=== PATIENT | female | born 1970 | race African-American/Black ===

== ENCOUNTER 2016-08-14 15:28 | Inpatient (IN) | payer OTHER ==
[2016-08-14] VITALS (8 sets, daily range): BP systolic 93–129; BP diastolic 60–98
[~2016-08-14] VITALS: Ht 162.6 cm; Wt 73.6 kg
--- NOTE | 2016-08-14 15:37 | Emergency Room Report ---
History of Present Illness General Source: Medical Record, EMS Present Illness HPI This patient presents from a [facility]. This patient has a history of respiratory failure and CVA. She is ventilator dependent. She underwent a chest x-ray this morning at the [facility] and was found to have a pneumothorax on the right side. The [facility] physician sent her here for evaluation. There has been no report of shortness of breath or difficulty feeding. There has been no change in mental status. There has been no desaturations. There are no other complaints. Allergies: Coded Allergies: No Known Allergies (Unverified , 08/14/16) Patient History Past Medical History: see triage record, DM, CAD, CVA/TIA, seizures, other - Hypothyroid Past Surgical History: pacemaker, other - TRACH/PEG Social History: Denies: alcohol use, drug use, smoking Reviewed Nursing Documentation: PMH: Agreed, PSxH: Agreed Review of Systems All Other Systems: limited Physical Exam Sp02 EP Interpretation: reviewed, normal General Appearance: no apparent distress, alert, non-toxic Head: normocephalic, atraumatic ENT: no angioedema Neck: full range of motion, supple/symm/no masses, other - Trach in place Respiratory: chest non-tender, lungs clear, normal breath sounds, no respiratory distress Cardiovascular #1: regular rate, rhythm, no edema Gastrointestinal: normal bowel sounds, non tender, soft, non-distended, no guarding, no rebound, other - G-tube in place Rectal: deferred Musculoskeletal: other - contracted (At baseline). Neurologic: alert, responsive, other - At baseline. Contracted, non-verbal. Skin: warm/dry, well hydrated Procedures Chest Tube Chest Tube : Consent: Emergent Chest Tube Location: Mid-clavicular line 2nd intercostal space. Chest Tube Procedure: betadine prep, sterile drapes applied, sterile dressing applied Anesthesia: 1% Lidocaine Volume Anesthetic (ccs): [address] [place]: Yes Number of Attempts: One Tube Sutured to Skin: No Patient Tolerated: Well Complications: None Progress A thoracic vent was placed at the midclavicular line second intercostal space in a standard fashion without complication or incident. Medical Decision Making Diagnostic Impression: Primary Impression: Pneumothorax on right ER Course This patient is on a ventilator and presents with a pneumothorax that comprises about 40% of her right chest. A thoracic vent chest tube was placed with reinflation of the right lung without competition or incident. See my procedure note. This patient is admitted to the ICU for further evaluation, monitoring and treatment. This patient is critically ill. This patient required complex medical decision- making, aggressive intervention, extensive laboratory workup and monitoring. Critical care time: 40 minutes. Labs Test 08/14/16 15:40 White Blood Count 8.4 K/UL (4.8-10.8) Red Blood Count 3.69 M/UL (4.20-5.40) Hemoglobin 10.5 G/DL (12.0-16.0) Hematocrit 32.1 % (37.0-47.0) Mean Corpuscular Volume 87 FL (80-99) Mean Corpuscular Hemoglobin 28.3 PG (27.0-31.0) Mean Corpuscular Hemoglobin Concent 32.6 G/DL (32.0-36.0) Red Cell Distribution Width 12.6 % (11.6-14.8) Platelet Count 329 K/UL (150-450) Mean Platelet Volume 7.3 FL (6.5-10.1) Neutrophils (%) (Auto) 54.4 % (45.0-75.0) Lymphocytes (%) (Auto) 37.1 % (20.0-45.0) Monocytes (%) (Auto) 4.0 % (1.0-10.0) Eosinophils (%) (Auto) 3.7 % (0.0-3.0) Basophils (%) (Auto) 0.9 % (0.0-2.0) Sodium Level 140 mEQ/L (135-145) Potassium Level 4.1 mEQ/L (3.4-4.9) Chloride Level 98 mEQ/L (98-107) Carbon Dioxide Level 24 mEQ/L (20-30) Anion Gap 18 (5-15) Blood Urea Nitrogen 14 mg/dL (7-23) Creatinine 0.5 mg/dL (0.5-0.9) Estimat Glomerular Filtration Rate > 60 mL/min (>60) Glucose Level 92 mg/dL (74-106) Calcium Level 10.1 mg/dL (8.6-10.2) Total Bilirubin < 0.2 mg/dL (0.0-1.2) Aspartate Amino Transf (AST/SGOT) 13 U/L (5-40) Alanine Aminotransferase (ALT/SGPT) 9 U/L (3-33) Alkaline Phosphatase 139 U/L (35-104) Total Protein 8.0 g/dL (6.6-8.7) Albumin 3.8 g/dL (3.5-5.2) Globulin 4.2 g/dL Albumin/Globulin Ratio 0.9 (1.0-2.7) EKG Diagnostic Results Rate: normal Rhythm: NSR ST Segments: no acute changes Other Impression NSST findings. No comparison available. Rhythm Strip Diag. Results EP Interpretation: yes Rate: 80's Rhythm: NSR, no PVC's, no ectopy Chest X-Ray Diagnostic Results Chest X-Ray Ordered: Yes # of Views/Limited/Complete: 1 View Interpretation: other Indication: Other Impression: Other - R. PTX Date Electronically Signed: Aug 14, 2016 Time Electronically Signed: 17:45 Interpreting ER Physician: Lalo Palmer Other X-Ray Diagnostic Results X-Ray ordered: CXR-S/p thoracic vent placement # of Views/Limited Vs Complete: 1 View Interpretation: other - Reinflated R. lung. Chest tube in place. Indication: Other Impression: Other - Reinflated R. lung s/p Thracic vent placement. Date Electronically Signed: Aug 14, 2016 Time Electronically Signed: 18:28 Interpreting ER Physician: Jorge Disposition: ADMITTED INPATIENT Condition: Critical SUSY PALMER D.O. Aug 14, 2016 15:37
[2016-08-14 16:15] LABS: BASOPHILS % (AUTO) 0.9 % (0.0-2.0); EOSINOPHILS % (AUTO) 3.7 % (0.0-3.0); LYMPHOCYTES % (AUTO) 37.1 % (20.0-45.0); MEAN CORPUSCULAR HEMOGLOBIN 28.3 PG (27.0-31.0); MEAN CORPUSCULAR HGB CONC 32.6 G/DL (32.0-36.0); MEAN CORPUSCULAR VOLUME 87 FL (80-99); MEAN PLATELET VOLUME 7.3 FL (6.5-10.1); NEUTROPHILS % (AUTO) 54.4 % (45.0-75.0); PLATELET COUNT 329 K/UL (150-450); RED BLOOD COUNT 3.69 M/UL (4.20-5.40); RED CELL DISTRIBUTION WIDTH 12.6 % (11.6-14.8); WHITE BLOOD COUNT 8.4 K/UL (4.8-10.8)
[2016-08-14 16:36] LABS: ALANINE AMINOTRANSFERASE 9 U/L (3-33); ALBUMIN/GLOBULIN RATIO 0.9 (1.0-2.7); ANION GAP 18 (5-15); ASPARTATE AMINO TRANSFERASE 13 U/L (5-40); CALCIUM 10.1 mg/dL (8.6-10.2); CARBON DIOXIDE 24 mEQ/L (20-30); CHLORIDE 98 mEQ/L (98-107); CREATININE 0.5 mg/dL (0.5-0.9); GLOMERULAR FILTRATION RATE > 60 mL/min (>60); HEMOLYSIS 41; POTASSIUM 4.1 mEQ/L (3.4-4.9); SODIUM 140 mEQ/L (135-145)
[2016-08-14] MEDS ORDERED: Lidocaine 1% MPF 10mg/ml 5ml ONE (16:57)
[2016-08-14] MEDS ORDERED: LACTULOSE20 GM/301 ORAL (17:47)
[2016-08-14] MEDS ORDERED: ACETAMINOP160 MG/51 ORAL (17:47)
[2016-08-14] MEDS ORDERED: LEVOTHYROXINE75 MCG ORAL (17:47)
[2016-08-14] MEDS ORDERED: ALBUTEROL2.5 MG/3 M INH (17:47)
[2016-08-14] MEDS ORDERED: MULTI-DELYN237 ML GT (17:47)
[2016-08-14] MEDS ORDERED: NORCO 5-325 TA1 EACH ORAL (17:47)
[2016-08-14] MEDS ORDERED: DULCOLAX10 MG RC (17:47)
[2016-08-14] MEDS ORDERED: FERROUS SU15 MG/1 M1 PO (17:47)
[2016-08-14] MEDS ORDERED: FERROUS SU300 MG/5 M ORAL (17:47)
[2016-08-14] MEDS ORDERED: MILK OF MA400 MG/51 ORAL (17:47)
[2016-08-14] MEDS ORDERED: ATENOLOL25 MG ORAL (17:47)
[2016-08-14] MEDS ORDERED: DOCUSATE SODIU100 MG ORAL (17:47)
[2016-08-14] MEDS ORDERED: ZINC SULFATE220 M1 ORAL (17:51)
[2016-08-15] VITALS (25 sets, daily range): BP systolic 87–114; BP diastolic 35–76
[2016-08-15] MEDS ORDERED: Acetaminophen Soln 160mg/5ml ORAL PRN (02:00)
[2016-08-15] MEDS ORDERED: Albuterol ud Inhalation HHN PRN (02:00)
[2016-08-15] MEDS: Docusate 100mg cap ORAL SCH (08:53)
[2016-08-15] MEDS: Ferrous Sulfate 300 MG/5 ML UDC ORAL SCH (08:53)
[2016-08-15] MEDS: Lactulose 20gm/30ml UDC ORAL SCH ×2 (08:53→18:00)
[2016-08-15] MEDS: Atenolol 25mg tab ORAL SCH (08:54)
--- NOTE | 2016-08-15 09:47 | History & Physical ---
History and Physical History & Physicial 46 year old unfortunate patient presented from a assisted facility after chest xr was positive for pneumothorax. This patient has a history of respiratory failure and CVA. She is ventilator dependent. She underwent a chest x-ray this morning at the assisted facility and was found to have a pneumothorax on the right side. There patient without increase in shortness of breath or difficulty with ventilator management. No reported oxygen desaturations. There are no other complaints or concerns. Allergies: No Known Allergies (Unverified , 08/14/16) Past Medical History: ETOH, PM, DM, CAD, CVA/TIA, seizures, Hypothyroid Past Surgical History: pacemaker, TRACH/PEG Social History: no alcohol use, drug use, smoking; bed bound; fully dependent Reviewed of systems: unable physical exam WDWN NAD clear breath sounds bilaterally without rhonchi or wheeze; ct in place [id number] without MRG NABS nontender no HSM GT no CCE nonfocal contracted Labs Test 08/14/16 15:40 White Blood Count 8.4 K/UL (4.8-10.8) Red Blood Count 3.69 M/UL (4.20-5.40) Hemoglobin 10.5 G/DL (12.0-16.0) Hematocrit 32.1 % (37.0-47.0) Mean Corpuscular Volume 87 FL (80-99) Mean Corpuscular Hemoglobin 28.3 PG (27.0-31.0) Mean Corpuscular Hemoglobin Concent 32.6 G/DL (32.0-36.0) Red Cell Distribution Width 12.6 % (11.6-14.8) Platelet Count 329 K/UL (150-450) Mean Platelet Volume 7.3 FL (6.5-10.1) Neutrophils (%) (Auto) 54.4 % (45.0-75.0) Lymphocytes (%) (Auto) 37.1 % (20.0-45.0) Monocytes (%) (Auto) 4.0 % (1.0-10.0) Eosinophils (%) (Auto) 3.7 % (0.0-3.0) Basophils (%) (Auto) 0.9 % (0.0-2.0) Sodium Level 140 mEQ/L (135-145) Potassium Level 4.1 mEQ/L (3.4-4.9) Chloride Level 98 mEQ/L (98-107) Carbon Dioxide Level 24 mEQ/L (20-30) Anion Gap 18 (5-15) Blood Urea Nitrogen 14 mg/dL (7-23) Creatinine 0.5 mg/dL (0.5-0.9) Estimat Glomerular Filtration Rate > 60 mL/min (>60) Glucose Level 92 mg/dL (74-106) Calcium Level 10.1 mg/dL (8.6-10.2) Total Bilirubin < 0.2 mg/dL (0.0-1.2) Aspartate Amino Transf (AST/SGOT) 13 U/L (5-40) Alanine Aminotransferase (ALT/SGPT) 9 U/L (3-33) Alkaline Phosphatase 139 U/L (35-104) Total Protein 8.0 g/dL (6.6-8.7) Albumin 3.8 g/dL (3.5-5.2) Globulin 4.2 g/dL Albumin/Globulin Ratio 0.9 (1.0-2.7) IMPRESSION PNEUMOTHORAX RESPIRATORY FAILURE TRACH GT PLAN care noted respiratory care Ventilatory care SNF meds supportive care suction no wean oxygen therapy thoracic to remove chest tube chest xr follow up prognosis guarded MONSERRAT GRULLON Aug 15, 2016 09:47
[2016-08-15] MEDS: Zinc Sulfate 220mg cap ORAL SCH (10:03)
--- NOTE | 2016-08-15 10:42 | Wound Care Consultation ---
Wound Assessment Wound Assessment #1: Wound Number: #1 Wound Present on Admission: Yes New Wound: No Status Change of Wound: No Wound Location Body Site Modif: mid Wound Location Body Site: sacral Wound Type: pressure ulcer Ledy Test: Does not Ledy Pressure Ulcer Stage: III Wound Thickness: Full Thickness Wound Length: 2.5 Wound Width: 3.0 Wound Depth: 0.3 Percent of Wound [place]/Red: 100 Wound Drainage Description: Serosanguineous Wound Drainage Amount: Moderate Wound Drainage Odor: None/Absent Tissue Surrounding Wound: Macerated Wound General Appearance: Reddened Wound Assessment #2: Wound Number: #2 Wound Present on Admission: Yes New Wound: No Status Change of Wound: No Wound Location Body Site Modif: right Wound Location Body Site: toe - 3rd toe Wound Type: scab - scattered Ledy Test: Does not Ledy Wound Thickness: Partial Thickness Percent of Wound [place]/Red: 50 - scab Percent of Wound Black/Brown: 50 - scab Wound Drainage Amount: None Wound Drainage Odor: None/Absent Tissue Surrounding Wound: Intact Wound General Appearance: Reddened - scabs, Blackened - scabs, Open to air, Clean/Dry Wound Comment #1 Mid Sacral pressure ulcer stage III. #2 Right 3rd toe scattered scabs. #3 Right chest scattered rash. Recommendation. -Local wound care PROTOCOL order. -Apply low air loss mattress SPR for wound and skin management. -Turn and reposition. -Keep clean and dry. -Optimize nutrition. -Offload affected site. -Avoid shear and friction. -Heel protectors. -Offload heels and feet. -Assess and notify MD for any changes of condition to skin noted. -FOLLOW UP WITH MD regarding rash to right chest area. SATCI MANDEL Aug 15, 2016 10:42
--- NOTE | 2016-08-15 10:55 | Diagnostic Imaging Report ---
Indication: Chest pain Technique: One view of the chest Comparison: None Findings: There is an approximately 60% right pneumothorax. Is a tracheostomy. There is a left chest pacemaker. No infiltrates or congestion. There is slight blunting of the left costophrenic sulcus. The right pleural space is clear other than the pneumothorax. There is a gastrostomy Impression: 60% right pneumothorax. This was apparently recognized by the emergency department physician, a subsequent chest radiograph document chest tube placement
--- NOTE | 2016-08-15 11:06 | Diagnostic Imaging Report ---
Indication: Followup pneumothorax Technique: One view of the chest Comparison: 08/14/2016 Findings: Again demonstrated is a upper lung chest vent catheter on the right, tip directed medially. No definite residual pneumothorax demonstrated. The right lung and pleural space are clear. There is slight obscuration of left hemidiaphragm and possible retrocardiac opacity, pleural and/or parenchymal disease in the left lung base not excludable. Pacemaker, tracheostomy again demonstrated Impression: Stable right lung, no evidence of residual or recurrent pneumothorax Obscured left hemidiaphragm, probably indicates some atelectasis at the left lung base, developing infiltrate or effusion not excludable
--- NOTE | 2016-08-15 12:54 | Diagnostic Imaging Report ---
Indication: TUBE PLCMT Technique: One view of the chest Comparison: 2 hours earlier Findings: Interim placement of right chest vent catheter, tip projected medially, resultant interim resolution of previously demonstrated pneumothorax. Lungs and pleural spaces are clear. Other findings are unchanged Impression: Interim resolution of previously demonstrated right pneumothorax, post chest vent catheter placement.
--- NOTE | 2016-08-15 15:01 | Cardiology Report ---
APPROVED REPORT EKG Measurement Heart [id number] Normal sinus rhythm Nonspecific T wave abnormality Abnormal ECG
--- NOTE | 2016-08-15 21:00 | Consultation ---
DATE OF CONSULTATION: 08/14/2016 CONSULTING PHYSICIAN: Yaniv Colin M.D. REFERRING PHYSICIAN: Jasiel Johnson M.D. HISTORY OF PRESENT ILLNESS: The patient is a 46-year-old, female who was transferred from a care home facility after detecting a right-sided pneumothorax. She has underwent a pigtail placement in the emergency room, and Thoracic Surgery was consulted for further evaluation. PAST MEDICAL HISTORY: Notable for, 1. Cerebrovascular accident. 2. Respiratory failure. 3. Diabetes. 4. Coronary artery disease. 5. Seizures. 6. Hypothyroidism. PAST SURGICAL HISTORY: Notable for, 1. Pacemaker insertion. 2. Tracheostomy. 3. G-tube placement. FAMILY HISTORY: Noncontributory. SOCIAL HISTORY: Noncontributory. ALLERGIES: The patient has no known drug allergies. MEDICATIONS: Reviewed. PHYSICAL EXAMINATION: VITAL SIGNS: She is noted to be afebrile. Her vitals are within normal limits. CARDIAC: Regular rate and rhythm. No gallops or murmur. RESPIRATORY: Clear to auscultation bilaterally. There is a right-sided pigtail chest tube with some air leak noted in the water chamber. ABDOMEN: Soft, nondistended, and nontender. EXTREMITIES: No evidence of cyanosis, clubbing, or edema. LABORATORY STUDY: Laboratory studies performed on 08/14/2016 showed WBC 8.4, hemoglobin of 10, hematocrit of 32, and a platelet count of 329,000. Her sodium is 140, potassium 4.1, chloride is 98, bicarbonate is 24, BUN is 14, creatinine is 0.5, and glucose is 92. Chest x-ray performed on 08/15/2016 demonstrated a right-sided pigtail placement with no evidence of pneumothorax. ASSESSMENT/PLAN: This is a 46-year-old, female, who presented with a right-sided pneumothorax. The patient was evaluated at bedside. After reviewing her clinical database, we will turn the ventilator PEEP to 0. Furthermore, we will continue the chest tube on suction x 48. The patient should have a noncontrast chest CT scan to further elucidate the underlying etiology of the pneumothorax. I want to thank you for referring this patient to my attention. If there are any questions in regards to this patient's clinical care, please do not hesitate to contact me. Bennett M.D. DR: REBECA JOB#: [id number] CC: SAAD
[2016-08-16] VITALS (24 sets, daily range): BP systolic 90–150; BP diastolic 48–100
--- NOTE | 2016-08-16 06:44 | General Progress Note ---
Assessment/Plan Assessment/Plan pneumothorax respiratory failure trach gt ALOC chronic encephalopathy PM low thyroid PLAN care noted respiratory care Ventilatory support SNF meds supportive care suction no wean oxygen therapy prognosis guarded await CT chest Subjective Allergies: Coded Allergies: No Known Allergies (Unverified , 08/14/16) Subjective thoracic appreciated Objective Last 24 Hour Vital Signs Date Time Temp Pulse Resp B/P Pulse Ox O2 Delivery O2 Flow Rate FiO2 08/16/16 06:00 89 22 107/78 100 Mechanical Ventilator 40 08/16/16 05:04 89 21 40 08/16/16 05:00 98.6 87 20 112/71 100 Mechanical Ventilator 40 08/16/16 04:00 86 08/16/16 04:00 90 18 104/68 100 Mechanical Ventilator 40 08/16/16 04:00 40 08/16/16 03:00 88 22 104/73 100 Mechanical Ventilator 40 08/16/16 02:44 84 19 40 08/16/16 02:00 88 22 102/67 100 Mechanical Ventilator 40 08/16/16 01:18 88 26 40 08/16/16 01:00 87 22 96/48 100 Mechanical Ventilator 40 08/16/16 00:00 40 08/16/16 00:00 88 08/16/16 00:00 91 22 93/51 100 Mechanical Ventilator 40 08/15/16 23:10 89 23 40 08/15/16 23:00 88 22 94/59 100 Mechanical Ventilator 40 08/15/16 22:00 88 22 100/65 100 Mechanical Ventilator 40 08/15/16 21:00 87 22 111/64 100 Mechanical Ventilator 40 08/15/16 20:56 85 17 40 08/15/16 20:00 40 08/15/16 20:00 82 08/15/16 20:00 78 22 98/60 100 Mechanical Ventilator 40 08/15/16 19:14 87 24 40 08/15/16 19:00 98.4 88 16 92/62 100 Mechanical Ventilator 40 08/15/16 18:00 85 19 103/58 100 Mechanical Ventilator 40 08/15/16 17:00 86 18 107/66 99 Mechanical Ventilator 40 08/15/16 16:42 88 17 40 08/15/16 16:00 88 08/15/16 16:00 98.4 90 26 114/76 100 Mechanical Ventilator 40 08/15/16 16:00 40 08/15/16 15:00 74 12 40 08/15/16 15:00 75 15 87/66 100 Mechanical Ventilator 40 08/15/16 14:00 75 14 89/57 100 Mechanical Ventilator 40 08/15/16 13:00 82 22 95/35 100 Mechanical Ventilator 40 08/15/16 12:40 90 23 40 08/15/16 12:00 40 08/15/16 12:00 90 08/15/16 12:00 98.7 90 27 106/48 100 Mechanical Ventilator 40 08/15/16 11:00 74 16 95/58 100 Mechanical Ventilator 40 08/15/16 10:45 80 12 40 08/15/16 10:00 40 08/15/16 10:00 86 20 112/67 100 Mechanical Ventilator 40 08/15/16 09:00 85 18 102/67 100 Mechanical Ventilator 40 08/15/16 08:55 84 17 40 08/15/16 08:54 80 105/64 08/15/16 08:00 98.5 82 25 103/66 99 Mechanical Ventilator 40 08/15/16 08:00 40 08/15/16 08:00 87 08/15/16 07:00 82 26 109/58 100 Mechanical Ventilator 40 08/15/16 06:50 87 22 40 Intake and Output 08/15/16 08/16/16 19:00 07:00 Intake Total 610 ml 380 ml Balance 610 ml 380 ml Intake Free Water 250 ml 50 ml Tube Feeding 360 ml 330 ml # Voids 1 # Bowel Movements 4 3 Height (Feet): 5 Height (Inches): 4.00 Weight (Pounds): 142 Objective WDWN NAD clear breath sounds bilaterally without rhonchi or wheeze; CT in place [id number] without MRG NABS nontender no HSM no CCE nonfocal significant contractures MONSERRAT GRULLON Aug 16, 2016 06:43
[2016-08-16] MEDS: Zinc Sulfate 220mg cap ORAL SCH (08:13)
[2016-08-16] MEDS: Lactulose 20gm/30ml UDC ORAL SCH ×2 (08:13→17:49)
[2016-08-16] MEDS: Docusate 100mg cap ORAL SCH (08:14)
[2016-08-16] MEDS: Ferrous Sulfate 300 MG/5 ML UDC ORAL SCH (08:14)
[2016-08-16] MEDS: Atenolol 25mg tab ORAL SCH (08:14)
[2016-08-16 10:20] LABS: BASOPHILS % (AUTO) 0.7 % (0.0-2.0); EOSINOPHILS % (AUTO) 2.4 % (0.0-3.0); LYMPHOCYTES % (AUTO) 26.7 % (20.0-45.0); MEAN CORPUSCULAR HEMOGLOBIN 28.2 PG (27.0-31.0); MEAN CORPUSCULAR HGB CONC 33.1 G/DL (32.0-36.0); MEAN CORPUSCULAR VOLUME 85 FL (80-99); MEAN PLATELET VOLUME 6.9 FL (6.5-10.1); MONOCYTES % (AUTO) 5.6 % (1.0-10.0); NEUTROPHILS % (AUTO) 64.7 % (45.0-75.0); PLATELET COUNT 356 K/UL (150-450); RED BLOOD COUNT 3.81 M/UL (4.20-5.40); RED CELL DISTRIBUTION WIDTH 12.7 % (11.6-14.8); WHITE BLOOD COUNT 9.7 K/UL (4.8-10.8)
[2016-08-16 10:36] LABS: ALANINE AMINOTRANSFERASE 8 U/L (3-33); ALBUMIN/GLOBULIN RATIO 0.8 (1.0-2.7); ANION GAP 19 (5-15); ASPARTATE AMINO TRANSFERASE 8 U/L (5-40); CALCIUM 9.8 mg/dL (8.6-10.2); CARBON DIOXIDE 21 mEQ/L (20-30); CHLORIDE 100 mEQ/L (98-107); CREATININE 0.5 mg/dL (0.5-0.9); GLOMERULAR FILTRATION RATE > 60 mL/min (>60); HEMOLYSIS 0; POTASSIUM 3.8 mEQ/L (3.4-4.9); SODIUM 140 mEQ/L (135-145); TOTAL PROTEIN 8.3 g/dL (6.6-8.7)
[2016-08-17] VITALS (16 sets, daily range): BP systolic 91–118; BP diastolic 49–90
[2016-08-17] MEDS: Norco 5mg/325mg tab ORAL PRN ×2 (06:00→07:03)
[2016-08-17] MEDS: Docusate 100mg cap ORAL SCH (09:09)
[2016-08-17] MEDS: Lactulose 20gm/30ml UDC ORAL SCH ×2 (09:09→17:10)
[2016-08-17] MEDS: Ferrous Sulfate 300 MG/5 ML UDC ORAL SCH (09:10)
[2016-08-17] MEDS: Zinc Sulfate 220mg cap ORAL SCH (09:10)
[2016-08-17] MEDS: Atenolol 25mg tab ORAL SCH (09:11)
--- NOTE | 2016-08-17 10:26 | Diagnostic Imaging Report ---
Indications: Chest pain Technique: Portable AP chest Findings: Comparison: 08/15/2016 Right-sided thoracic vent remains in place. No pneumothorax or pleural effusion identified. Left lung volume loss, left retrocardiac opacification, left costophrenic angle indistinctness all persist, not significantly changed. Cardiomediastinal silhouette stable. IMPRESSION: No evidence of recurrent right pneumothorax Stable left lung base atelectasis versus pneumonia, adjacent pleural effusion
--- NOTE | 2016-08-17 10:26 | Diagnostic Imaging Report ---
Indications: Shortness of breath, pneumothorax of unknown etiology Technique: Continuous helical CT imaging of the thorax and upper abdomen was performed with automatic exposure control on a Siemens sensation [address] scanner. Axial images were reconstructed at 5 mm slice thickness and interval. Coronal images were reconstructed at 5 mm slice thickness. No IV contrast was administered secondary to requesting physician's order, despite no contraindications listed. CTDI volume(s): 29 mGy Total DLP: 950 mGy-cm Findings: Comparison: Chest radiographs 08/14/16, 08/15/16 Percutaneous catheter of a thoracic vent enters the upper anterior right pleural space via the right anterior first intercostal space, extending into the medial aspect of the right pleural space. No pneumothorax or pleural effusion identified. The few small pleural-based linear densities are present in the right upper lobe. Subsegmental parenchymal consolidation and volume loss are present in the dependent portion of the right lung base. No other pulmonary parenchymal abnormalities are demonstrated. Right lung volume is significantly greater than left. Cardiomediastinal structures are shifted to the left. The lower lobe the left lung demonstrates subtotal parenchymal consolidation and volume loss with apparent bronchial obstruction centrally. Multiloculated hydropneumothorax is present in the upper anteromedial aspect of the left pleural space. Fluid component is high attenuation. This resides directly adjacent to the left subclavian artery and site of pacemaker leads entering the left subclavian vein. Heart is normal in size. Pacemaker leads reside within the right atrium and ventricle. No significant pericardial abnormality. A few small gas bubbles are present in the anterior mediastinal fat. No enlarged mediastinal or hilar lymph nodes detected. Pacemaker generator is present in the subcutaneous soft tissues of the upper anterior left chest wall. No obvious surrounding abnormality. Tracheostomy tube in place. Percutaneous gastrostomy tube in place. Remainder of imaged upper abdominal anatomy demonstrates no other obvious acute abnormality, though images are degraded by artifact generated by the patient's upper extremities at her sides. No focal skeletal abnormality identified. IMPRESSION: Right thoracic vent in place. No evidence of right pneumothorax, pleural effusion, other associated pleural or subjacent pulmonary parenchymal abnormalities suggestive of etiology of pneumothorax. Correlate with any recent history of central venous catheter placement attempt. Multifocal right lung subsegmental atelectasis Small loculated hemopneumothorax upper left hemithorax. Due to proximity to left subclavian artery and vein, this may represent complication of previous pacemaker placement with inadvertent puncture of left subclavian artery. Correlate historically. Minimal pneumomediastinum likely reflects the same process as above Subtotal atelectasis of left lower lobe. Central bronchial obstruction evident, etiology indeterminate. Bronchoscopy recommended. Pacemaker, tracheostomy, gastrostomy tube.
[2016-08-17 11:27] LABS: MEAN CORPUSCULAR HEMOGLOBIN 29.2 PG (27.0-31.0); MEAN CORPUSCULAR HGB CONC 33.1 G/DL (32.0-36.0); MEAN CORPUSCULAR VOLUME 88 FL (80-99); MEAN PLATELET VOLUME 7.2 FL (6.5-10.1); PLATELET COUNT 388 K/UL (150-450); RED BLOOD COUNT 4.17 M/UL (4.20-5.40); WHITE BLOOD COUNT 16.4 K/UL (4.8-10.8)
[2016-08-17 11:36] LABS: ANION GAP 18 (5-15); CARBON DIOXIDE 21 mEQ/L (20-30); CHLORIDE 100 mEQ/L (98-107); CREATININE 0.6 mg/dL (0.5-0.9); GLOMERULAR FILTRATION RATE > 60 mL/min (>60); HEMOLYSIS 0; POTASSIUM 3.7 mEQ/L (3.4-4.9); SODIUM 139 mEQ/L (135-145)
[2016-08-17 12:01] LABS: BAND NEUTROPHILS % (MANUAL) 0 % (0-8); BASOPHILS % (MANUAL) 0 % (0-2); EOSINOPHILS % (MANUAL) 1 % (0-3); LYMPHOCYTES % (MANUAL) 11 % (20-45); NEUTROPHILS % (MANUAL) 88 % (45-75); PLATELET ESTIMATE ADEQUATE; PLATELET MORPHOLOGY NORMAL; TOTAL CELLS COUNTED 100
[2016-08-17] MEDS ORDERED: Acetaminophen 650mg/20.3ml ORAL PRN (12:30)
--- NOTE | 2016-08-17 13:29 | General Progress Note ---
Assessment/Plan Assessment/Plan pneumothorax respiratory failure trach gt ALOC chronic encephalopathy PM low thyroid PLAN care noted respiratory care Ventilatory support as is SNF meds supportive care suction add IV cefepime check culture follow up cbc no wean oxygen therapy prognosis guarded await CT chest Subjective Allergies: Coded Allergies: No Known Allergies (Unverified , 08/14/16) Subjective thoracic appreciated wbc elevated cxr noted Objective Last 24 Hour Vital Signs Date Time Temp Pulse Resp B/P Pulse Ox O2 Delivery O2 Flow Rate FiO2 08/17/16 12:00 35 08/17/16 12:00 101.2 97 16 93/61 97 Mechanical Ventilator 35 08/17/16 11:22 100 23 35 08/17/16 11:00 104 29 104/78 97 Mechanical Ventilator 35 08/17/16 10:00 105 32 106/66 96 Mechanical Ventilator 35 08/17/16 09:11 115 107/68 08/17/16 09:03 107 26 35 08/17/16 09:00 115 29 107/68 97 Mechanical Ventilator 35 08/17/16 08:14 99.1 08/17/16 08:00 35 08/17/16 08:00 95 08/17/16 08:00 99.1 97 28 108/73 96 Mechanical Ventilator 35 08/17/16 07:04 94 26 35 08/17/16 07:00 95 19 95/61 97 Mechanical Ventilator 35 08/17/16 06:00 21 94/49 95 Mechanical Ventilator 40 08/17/16 05:07 97 26 40 08/17/16 05:00 100 30 109/90 100 Mechanical Ventilator 40 08/17/16 04:00 99.0 99 24 110/81 100 Mechanical Ventilator 40 08/17/16 04:00 99 08/17/16 04:00 40 08/17/16 03:05 102 20 40 08/17/16 03:00 100 22 98/67 94 Mechanical Ventilator 40 08/17/16 02:00 98 26 91/53 96 Mechanical Ventilator 40 08/17/16 01:12 100 25 40 08/17/16 01:00 96 25 99/64 100 Mechanical Ventilator 40 08/17/16 00:38 99.3 92 26 93/67 100 Mechanical Ventilator 40 08/17/16 00:04 40 08/17/16 00:00 97 08/17/16 00:00 99.4 97 26 93/67 100 Mechanical Ventilator 40 08/16/16 23:00 95 23 97/72 99 Mechanical Ventilator 40 08/16/16 22:47 94 19 40 08/16/16 22:00 96 26 103/62 99 Mechanical Ventilator 40 08/16/16 21:00 95 24 118/100 99 Mechanical Ventilator 40 08/16/16 20:56 99 08/16/16 20:43 96 20 40 08/16/16 20:00 40 08/16/16 20:00 99.2 95 15 95/76 97 Mechanical Ventilator 40 08/16/16 19:15 94 16 40 08/16/16 19:00 92 17 100/59 100 Mechanical Ventilator 40 08/16/16 18:00 95 16 90/52 99 Mechanical Ventilator 40 08/16/16 17:17 97 18 40 08/16/16 17:00 100 23 106/55 100 Mechanical Ventilator 40 08/16/16 16:00 98.4 102 20 117/79 97 Mechanical Ventilator 40 08/16/16 16:00 102 08/16/16 16:00 40 08/16/16 15:00 103 23 40 08/16/16 15:00 99 26 102/60 97 Mechanical Ventilator 40 08/16/16 14:00 96 20 99/63 99 Mechanical Ventilator 40 Intake and Output 08/16/16 08/17/16 19:00 07:00 Intake Total 485 ml 660 ml Output Total 10 ml Balance 485 ml 650 ml Intake Free Water 120 ml Tube Feeding 435 ml 540 ml Other 50 ml Output Stool Total 10 ml Chest Tube Drainage Total 0 ml # Voids 3 3 # Bowel Movements 1 Laboratory Tests 08/17/16 11:00: White Blood Count 16.4#H, Red Blood Count 4.17L, Hemoglobin 12.2, Hematocrit 36.8L, Mean Corpuscular Volume 88, Mean Corpuscular Hemoglobin 29.2, Mean Corpuscular Hemoglobin Concent 33.1, Red Cell Distribution Width 13.0, Platelet Count 388, Mean Platelet Volume 7.2, Neutrophils (%) (Auto) , Lymphocytes (%) ( Auto) , Monocytes (%) (Auto) , Eosinophils (%) (Auto) , Basophils (%) (Auto) , Differential Total Cells Counted 100, Neutrophils % (Manual) 88H, Lymphocytes % (Manual) 11L, Monocytes % (Manual) 0L, Eosinophils % (Manual) 1, Basophils % ( Manual) 0, Band Neutrophils 0, Platelet Estimate Adequate, Platelet Morphology Normal, Red Blood Cell Morphology Normal, Sodium Level 139, Potassium Level 3.7 , Chloride Level 100, Carbon Dioxide Level 21, Anion Gap 18H, Blood Urea Nitrogen 13, Creatinine 0.6, Estimat Glomerular Filtration Rate > 60, Glucose Level 121H, Calcium Level 10.0 Height (Feet): 5 Height (Inches): 4.00 Weight (Pounds): 146 Objective WDWN NAD clear breath sounds bilaterally without rhonchi or wheeze; CT in place [id number] without MRG NABS nontender no HSM no CCE nonfocal significant contractures MONSERRAT GRULLON Aug 17, 2016 13:29
[2016-08-17] MEDS ORDERED: Albuterol ud Inhalation HHN PRN (14:00)
[2016-08-17] MEDS ORDERED: Norco 5mg/325mg tab ORAL PRN (21:00)
[2016-08-18] VITALS: BP 118/80
[2016-08-18 04:00] VITALS: BP 125/70
[2016-08-18 05:53] LABS: BASOPHILS % (AUTO) 1.1 % (0.0-2.0); LYMPHOCYTES % (AUTO) 26.6 % (20.0-45.0); MEAN CORPUSCULAR HEMOGLOBIN 29.2 PG (27.0-31.0); MEAN CORPUSCULAR HGB CONC 32.8 G/DL (32.0-36.0); MEAN CORPUSCULAR VOLUME 89 FL (80-99); MEAN PLATELET VOLUME 7.1 FL (6.5-10.1); MONOCYTES % (AUTO) 4.5 % (1.0-10.0); NEUTROPHILS % (AUTO) 63.9 % (45.0-75.0); PLATELET COUNT 294 K/UL (150-450); RED BLOOD COUNT 3.97 M/UL (4.20-5.40); WHITE BLOOD COUNT 9.7 K/UL (4.8-10.8)
[2016-08-18 08:00] VITALS: BP 100/67
--- NOTE | 2016-08-18 08:12 | General Progress Note ---
Assessment/Plan Assessment/Plan pneumothorax respiratory failure trach gt ALOC chronic encephalopathy PM low thyroid atelectasis PLAN care noted respiratory care Ventilatory support as is SNF meds supportive care suction IV cefepime check culture follow up noted no wean oxygen therapy prognosis guarded reviewed CT chest\ bronchoscopy to evaluate airway Subjective Allergies: Coded Allergies: No Known Allergies (Unverified , 08/14/16) Subjective thoracic appreciated wbc improved cxr noted Objective Last 24 Hour Vital Signs Date Time Temp Pulse Resp B/P Pulse Ox O2 Delivery O2 Flow Rate FiO2 08/18/16 06:34 97 21 35 08/18/16 05:20 98 27 35 08/18/16 04:00 35 08/18/16 04:00 99.0 96 21 125/70 99 Mechanical Ventilator 35 08/18/16 04:00 98 08/18/16 03:27 93 20 35 08/18/16 01:20 93 18 35 08/18/16 00:00 99.4 99 23 118/80 98 Mechanical Ventilator 35 08/18/16 00:00 35 08/18/16 00:00 90 08/17/16 23:11 99 27 35 08/17/16 21:08 103 22 35 08/17/16 20:11 98.4 84 14 112/58 98 Mechanical Ventilator 35 08/17/16 20:00 35 08/17/16 20:00 90 08/17/16 19:22 91 20 35 08/17/16 17:00 103 30 35 08/17/16 16:00 98.1 104 30 118/76 99 Mechanical Ventilator 35 08/17/16 16:00 35 08/17/16 15:29 91 08/17/16 14:36 97 16 35 08/17/16 13:39 99.1 08/17/16 12:48 98 22 35 08/17/16 12:00 35 08/17/16 12:00 101.2 97 16 93/61 97 Mechanical Ventilator 35 08/17/16 11:52 102 08/17/16 11:22 100 23 35 08/17/16 11:00 104 29 104/78 97 Mechanical Ventilator 35 08/17/16 10:00 105 32 106/66 96 Mechanical Ventilator 35 08/17/16 09:11 115 107/68 08/17/16 09:03 107 26 35 08/17/16 09:00 115 29 107/68 97 Mechanical Ventilator 35 08/17/16 08:14 99.1 Intake and Output 08/17/16 08/18/16 19:00 07:00 Intake Total 830 ml 770 ml Balance 830 ml 770 ml Intake Free Water 0 ml 50 ml IV Total 50 ml Tube Feeding 720 ml 720 ml Other 60 ml # Voids 3 3 # Bowel Movements 3 Laboratory Tests 08/17/16 11:00: White Blood Count 16.4#H, Red Blood Count 4.17L, Hemoglobin 12.2, Hematocrit 36.8L, Mean Corpuscular Volume 88, Mean Corpuscular Hemoglobin 29.2, Mean Corpuscular Hemoglobin Concent 33.1, Red Cell Distribution Width 13.0, Platelet Count 388, Mean Platelet Volume 7.2, Neutrophils (%) (Auto) , Lymphocytes (%) ( Auto) , Monocytes (%) (Auto) , Eosinophils (%) (Auto) , Basophils (%) (Auto) , Differential Total Cells Counted 100, Neutrophils % (Manual) 88H, Lymphocytes % (Manual) 11L, Monocytes % (Manual) 0L, Eosinophils % (Manual) 1, Basophils % ( Manual) 0, Band Neutrophils 0, Platelet Estimate Adequate, Platelet Morphology Normal, Red Blood Cell Morphology Normal, Sodium Level 139, Potassium Level 3.7 , Chloride Level 100, Carbon Dioxide Level 21, Anion Gap 18H, Blood Urea Nitrogen 13, Creatinine 0.6, Estimat Glomerular Filtration Rate > 60, Glucose Level 121H, Calcium Level 10.0 08/18/16 03:55: White Blood Count 9.7, Red Blood Count 3.97L, Hemoglobin 11.6L, Hematocrit 35.4L , Mean Corpuscular Volume 89, Mean Corpuscular Hemoglobin 29.2, Mean Corpuscular Hemoglobin Concent 32.8, Red Cell Distribution Width 13.0, Platelet Count 294, Mean Platelet Volume 7.1, Neutrophils (%) (Auto) 63.9, Lymphocytes (% ) (Auto) 26.6, Monocytes (%) (Auto) 4.5, Eosinophils (%) (Auto) 4.0H, Basophils (%) (Auto) 1.1 Height (Feet): 5 Height (Inches): 4.00 Weight (Pounds): 156 Objective WDWN NAD clear breath sounds bilaterally without rhonchi or wheeze; CT in place [id number] without MRG NABS nontender no HSM no CCE nonfocal significant contractures MONSERRAT GRULLON Aug 18, 2016 08:12
[2016-08-18] MEDS: Ferrous Sulfate 300 MG/5 ML UDC ORAL SCH (08:33)
[2016-08-18] MEDS: Docusate 100mg/10ml Liq GT SCH (08:33)
[2016-08-18] MEDS: Atenolol 25mg tab ORAL SCH (08:34)
[2016-08-18] MEDS: Lactulose 20gm/30ml UDC ORAL SCH ×2 (08:34→18:34)
[2016-08-18] MEDS: Zinc Sulfate 220mg cap ORAL SCH (08:35)
[2016-08-18] MEDS ORDERED: Tubing IV Secondary IV ONE (10:13)
[2016-08-18] MEDS ORDERED: NS 275ml ONE (10:13)
[2016-08-18] MEDS ORDERED: Sterile Water Irrig 1000ml IRRIG ONE (10:28)
--- NOTE | 2016-08-18 11:08 | Diagnostic Imaging Report ---
Indication: Dyspnea Technique: One view of the chest Comparison: 08/17/2016 Findings: Thoracic remains in the right lung. No pneumothorax demonstrated. Hazy opacity seen in the left mid and lower lung, unchanged. Tracheostomy, pacemaker remain. Normal heart size Impression: Unchanged, over one day, findings as above.
[2016-08-18 12:00] VITALS: BP 106/70
[2016-08-18 16:00] VITALS: BP 95/56
[2016-08-18 20:00] VITALS: BP 97/67
[2016-08-18] MEDS: Ascorbic Acid 500mg tab ORAL SCH (21:09)
[2016-08-19] VITALS: BP 103/61
[2016-08-19 04:00] VITALS: BP 94/57
[2016-08-19 08:00] VITALS: BP 97/67
[2016-08-19] MEDS: Ascorbic Acid 500mg tab ORAL SCH ×2 (08:13→17:46)
[2016-08-19] MEDS: Zinc Sulfate 220mg cap ORAL SCH (08:13)
[2016-08-19] MEDS: Docusate 100mg/10ml Liq GT SCH (08:13)
[2016-08-19] MEDS: Ferrous Sulfate 300 MG/5 ML UDC ORAL SCH (08:13)
[2016-08-19] MEDS: Lactulose 20gm/30ml UDC ORAL SCH ×2 (08:14→17:46)
[2016-08-19] MEDS: Atenolol 25mg tab ORAL SCH (08:14)
--- NOTE | 2016-08-19 10:03 | General Progress Note ---
Assessment/Plan Assessment/Plan pneumothorax respiratory failure trach gt ALOC chronic encephalopathy PM low thyroid atelectasis PLAN care noted respiratory care Ventilatory support as is SNF meds supportive care suction IV cefepime check culture follow up noted no wean oxygen therapy prognosis guarded reviewed CT chest- bronchoscopy this am Subjective Allergies: Coded Allergies: No Known Allergies (Unverified , 08/14/16) Subjective thoracic appreciated wbc improved cxr noted Objective Last 24 Hour Vital Signs Date Time Temp Pulse Resp B/P Pulse Ox O2 Delivery O2 Flow Rate FiO2 08/19/16 09:02 94 19 35 08/19/16 08:14 90 91/62 08/19/16 08:00 99.5 94 18 97/67 99 Mechanical Ventilator 35 08/19/16 08:00 35 08/19/16 07:12 97 17 35 08/19/16 04:00 98.6 98 19 94/57 93 08/19/16 04:00 35 08/19/16 03:41 103 08/19/16 03:20 88 28 35 08/19/16 01:01 85 28 35 08/19/16 00:00 35 08/19/16 00:00 98.2 72 15 103/61 08/18/16 23:35 101 08/18/16 23:06 86 28 35 08/18/16 21:16 83 28 35 08/18/16 20:00 97.9 76 13 97/67 93 08/18/16 20:00 35 08/18/16 19:22 84 08/18/16 19:13 82 17 35 08/18/16 16:57 90 20 35 08/18/16 16:00 99.4 96 38 95/56 100 Mechanical Ventilator 35 08/18/16 16:00 35 08/18/16 15:21 93 08/18/16 14:31 92 20 35 08/18/16 12:46 91 18 35 08/18/16 12:00 99.2 88 18 106/70 99 Mechanical Ventilator 35 08/18/16 12:00 35 08/18/16 11:38 83 08/18/16 11:01 94 18 35 Intake and Output 08/18/16 08/19/16 19:00 07:00 Intake Total 970 ml 400 ml Balance 970 ml 400 ml Intake Free Water 150 ml IV Total 50 ml 100 ml Tube Feeding 720 ml 300 ml Other 50 ml # Voids 1 4 # Bowel Movements 1 Height (Feet): 5 Height (Inches): 4.00 Weight (Pounds): 157 Objective WDWN NAD clear breath sounds bilaterally without rhonchi or wheeze; CT in place [id number] without MRG NABS nontender no HSM no CCE nonfocal significant contractures MONSERRAT GRULLON Aug 19, 2016 10:03
[2016-08-19 12:00] VITALS: BP 96/69
[2016-08-19] MEDS ORDERED: Sterile Water Irrig 1000ml IRRIG ONE (14:36)
[2016-08-19] MEDS ORDERED: NS 275ml ONE (14:36)
[2016-08-19 16:00] VITALS: BP 102/71
[2016-08-19 20:00] VITALS: BP 119/83
--- NOTE | 2016-08-19 21:30 | Procedure Note ---
DATE OF PROCEDURE: 08/19/2016 PROCEDURE: Bronchoscopy. PREOPERATIVE DIAGNOSIS: Left lower lobe mass. POSTOPERATIVE DIAGNOSIS: Left lower lobe mass. INDICATIONS: Abnormal CT of the chest. CONSENT: After risks and benefits of the procedure explained to the patient and family, informed consent was obtained and placed in the chart. DESCRIPTION OF PROCEDURE: Using no additional conscious sedation, a fiberoptic bronchoscope was passed via the tracheostomy site. The patient's right endobronchial evaluation was essentially negative. The left lower lobe notable for lobulated mass. Multiple instillation of saline were given to assess whether this may be secretions or concretions. biopsies could not be taken as procedure was done at bedside and no consent for biopsy obtained FINDINGS: Lobulated mass, left lower lobe. DISPOSITION: To remain in the [facility] and we will request further intervention with family. Jasiel Johnson M.D. DR: NICOLE JOB#: [id number] CC: SAAD
[2016-08-20] VITALS: BP 120/63
[2016-08-20 04:00] VITALS: BP 122/58
[2016-08-20 08:00] VITALS: BP 114/71
[2016-08-20] MEDS: Docusate 100mg/10ml Liq GT SCH (08:32)
[2016-08-20] MEDS: Zinc Sulfate 220mg cap ORAL SCH (08:32)
[2016-08-20] MEDS: Ascorbic Acid 500mg tab ORAL SCH (08:32)
[2016-08-20] MEDS: Ferrous Sulfate 300 MG/5 ML UDC ORAL SCH (08:32)
[2016-08-20] MEDS: Lactulose 20gm/30ml UDC ORAL SCH (08:32)
[2016-08-20] MEDS: Atenolol 25mg tab ORAL SCH (08:33)
[2016-08-20] MEDS ORDERED: NS 275ml ONE (10:03)
[2016-08-20 12:00] VITALS: BP 131/69
--- NOTE | 2016-08-20 14:36 | General Progress Note ---
Assessment/Plan Assessment/Plan pneumothorax respiratory failure trach gt ALOC chronic encephalopathy PM low thyroid atelectasis endobronchial mass PLAN care noted respiratory care Ventilatory support as is SNF meds supportive care suction inhaled amikacin check culture follow up noted no wean oxygen therapy prognosis guarded discuss with family as to plan of care Subjective Allergies: Coded Allergies: No Known Allergies (Unverified , 08/14/16) Subjective thoracic appreciated wbc improved cxr noted cultures noted bronchoscopy noted Objective Last 24 Hour Vital Signs Date Time Temp Pulse Resp B/P Pulse Ox O2 Delivery O2 Flow Rate FiO2 08/20/16 12:39 88 23 35 08/20/16 12:00 99.2 91 30 131/69 100 Mechanical Ventilator 35 08/20/16 12:00 35 08/20/16 11:55 86 08/20/16 10:38 92 19 35 08/20/16 10:36 88 22 35 08/20/16 09:16 85 16 35 08/20/16 08:33 92 114/71 08/20/16 08:00 99.3 92 21 114/71 100 Mechanical Ventilator 35 08/20/16 08:00 35 08/20/16 07:53 87 08/20/16 06:57 89 18 35 08/20/16 05:06 88 17 35 08/20/16 04:00 95 08/20/16 04:00 98.6 96 16 122/58 98 Mechanical Ventilator 35 08/20/16 04:00 35 08/20/16 03:05 93 16 35 08/20/16 01:17 85 12 35 08/20/16 00:00 90 08/20/16 00:00 98.6 98 14 120/63 98 Mechanical Ventilator 35 08/20/16 00:00 35 08/19/16 23:04 83 15 35 08/19/16 21:18 82 14 35 08/19/16 20:00 35 08/19/16 20:00 94 08/19/16 20:00 98.6 103 12 119/83 99 Mechanical Ventilator 35 08/19/16 18:52 87 12 35 08/19/16 16:42 97 14 35 08/19/16 16:00 35 08/19/16 16:00 98.6 99 17 102/71 99 Mechanical Ventilator 35 08/19/16 15:41 103 08/19/16 14:57 93 12 35 Intake and Output 08/19/16 08/20/16 19:00 07:00 Intake Total 410 ml 660 ml Balance 410 ml 660 ml Intake Free Water 50 ml IV Total 50 ml 50 ml Tube Feeding 310 ml 560 ml Other 50 ml # Voids 2 2 # Bowel Movements 1 1 Height (Feet): 5 Height (Inches): 4.00 Weight (Pounds): 162 Objective WDWN NAD clear breath sounds bilaterally without rhonchi or wheeze; CT in place out [id number] without MRG NABS nontender no HSM no CCE nonfocal significant contractures MONSERRAT GRULLON Aug 20, 2016 14:36
[2016-08-20] MEDS ORDERED: Amikacin for Inhalation 2ML INH SCH (22:00)
--- NOTE | 2016-08-21 11:06 | Diagnostic Imaging Report ---
Indications: Thorax, status post thoracic vent removal Technique: Portable AP chest Findings: Comparison: 08/18/16 Thoracic vent has been removed from the right hemithorax. No pneumothorax identified. Pulmonary inflation improved. Heart size, pulmonary vasculature within normal limits. Lungs, pleura clear. IMPRESSION: Removal of right thoracic vent; no pneumothorax No current evidence of acute cardiopulmonary disease
--- NOTE | 2016-08-21 15:05 | Discharge Summary ---
Discharge Summary Hospital Course Date of Admission Aug 14, 2016 at 17:47 Date of Discharge Aug 20, 2016 at 13:20 Admitting Diagnosis Pneumothorax KAVITHA Perez is a 46 year old female who was admitted on Aug 14, 2016 at 17: 47 for Pneumothorax Hospital Course dc summary #[id number] Discharge Condition Upon Discharge: stable Discharge Disposition Patient was discharged to SNF/Subacute Facility(03) Discharge Diagnoses: Discharge Instructions Discharge Instructions Special Instructions I have been assigned to complete a D/C Summary on this account. I was not involved in the patient management Morgan Arriaga)Yissel NP Aug 21, 2016 15:05
--- NOTE | 2016-08-22 03:46 | Discharge Summary 2 SIG ---
DATE OF ADMISSION: 08/14/2016 DATE OF DISCHARGE: 08/20/2016 REASON FOR ADMISSION: 46-year-old female with a history of respiratory failure, CVA, ventilator dependency, tracheostomy, dysphagia , G-tube, and seizure disorder, was sent from the [facility] for management of pneumothorax. She underwent chest x-ray earlier that morning in the [facility] and found to have right- sided pneumothorax. There was no shortness of breath. No evidence of hypoxemia. Chest x-ray in the emergency room revealed 60% of right pneumothorax. Subsequently, a thoracic vent chest tube was placed with reinflation of the right lung without incident. The patient was admitted to ICU for further management. Followup of chest x-ray after placement of thoracic vent revealed reinflation of the right lung and placement of thoracic vent. ADMITTING DIAGNOSES: 1. Right-sided pneumothorax. 2. Chronic respiratory failure with ventilator dependency. 3.Tracheostomy status. 4. Gastrostomy tube. HOSPITAL STAY: The patient was admitted to ICU. The patient was followed with daily chest x-ray. Chest x-ray on the 08/15/2016 revealed stable right lung. No evidence of residual or recurrent pneumothorax. Cardiothoracic surgeon seen the patient on 08/15/[address] of the chest to further elucidate the underlying etiology of the pneumothorax. He was also recommended to continue chest tube suction for [address] of the chest subsequently was done on 08/16/2016 and revealed right thoracic vent in place. No evidence of right pneumothorax, pleural effusion, other associated pleural or subjacent pulmonary parenchymal abnormalities suggestive of etiology of pneumothorax. Multifocal right lung subsegmental atelectasis. Atelectasis of the left lower lobe. CT of the chest also revealed evidence of central bronchial obstruction , etiology undetermined. Bronchoscopy was recommended. Ventilator support was provided. The patient was suctioned as needed. Pulmonary toilet was provided as needed. SNF medications were resumed. Supportive care was provided. The patient was started on empiric antibiotic. Antibiotic regimen was optimized after sputum culture was available. Sputum culture grew Acinetobacter, multidrug resistant and Haemophilus. The patient was on inhaled amikacin and cefepime. Thoracic vent was discontinued since no evidence of recurrent pneumothorax on daily chest X ray that followed. On 08/19/2016 after discontinuation of thoracic vent, chest x-ray showed removal of right thoracic vent and no pneumothorax. At the same day, the patient undergone bronchoscopy , which revealed lobulated mass left lower lobe. Biopsy could not be obtained. Right endobronchial evaluation was essentially negative. Long discussion was held with family regarding guarded prognosis due to overall multiple chronic comorbidities. Recommended DNR/DNI status to consider and palliative care. The patient was stable for discharge to subacute [facility] facility. No signs of respiratory distress on current ventilator settings. FINAL DIAGNOSES: 1. Right pneumothorax, resolved. 2. Status post placement and removal of thoracic vent. 3. Ventilator dependent respiratory failure 4. Tracheostomy status. 5. Left lower lobe mass/endobronchial lobulated mass. 6. Status post 08/19/2016 bronchoscopy. 7. Atelectasis. 8. Chronic encephalopathy 9. Gastrostomy tube. DISCHARGE MEDICATIONS: Medication list was sent with the patient to SNF. DISCHARGE INSTRUCTIONS: The patient was discharged to subacute facility. Follow up with medical doctor and bag checker at the facility. Jasiel Johnson M.D. I have been assigned to dictate discharge summary on this account and I was not involved in the patient's management. Yissel [facility] DR: MARCY JOB#: [id number] CC: SAAD
== END 2016-08-20 13:20 | DRG 130 ==
LOC: EDBD 15:28 → EMR 16:22 → ICU 17:47 → EDBEDREQ 22:15 → 2W 08-17 11:54
PROC: 0W9930Z Drainage of Right Pleural Cavity with Drainage Device, Percutaneous Approach (ICD-10-PCS; principal; 2016-08-14)
PROC: 5A1955Z Respiratory Ventilation, Greater than 96 Consecutive Hours (ICD-10-PCS; 2016-08-14)
PROC: 0BJ08ZZ Inspection of Tracheobronchial Tree, Via Natural or Artificial Opening Endoscopic (ICD-10-PCS; 2016-08-19)
DX: J93.83 Other pneumothorax (principal); G93.40 Encephalopathy, unspecified; R56.9 Unspecified convulsions; J96.10 Chronic respiratory failure, unspecified whether with hypoxia or hypercapnia; Z43.1 Encounter for attention to gastrostomy; Z99.11 Dependence on respirator [ventilator] status; I25.10 Atherosclerotic heart disease of native coronary artery without angina pectoris; E03.9 Hypothyroidism, unspecified; Z95.0 Presence of cardiac pacemaker; Z86.73 Personal history of transient ischemic attack (TIA), and cerebral infarction without residual deficits; E11.9 Type 2 diabetes mellitus without complications; Z43.0 Encounter for attention to tracheostomy; R91.8 Other nonspecific abnormal finding of lung field; J98.11 Atelectasis
CPT/HCPCS: 36415; 71010; 71250; 80048; 80053; 85007; 85025; 87070; 87081; 87181; 87205; 88104; 93005; 94002; 94003

== ENCOUNTER 2017-01-26 10:32 | Inpatient (IN) | payer MEDICAID, OTHER ==
[~2017-01-26] VITALS: Ht 175.3 cm; Wt 81.6 kg
[~2017-01-26 10:32] MED LIST: ACETAMINOP160 MG/51 GT; ALBUTEROL2.5 MG/3 M INH; ATENOLOL25 MG ORAL; DOCUSATE SODIU100 MG GT; DULCOLAX10 MG RC; FERROUS SU15 MG/1 M1 PO; FERROUS SU300 MG/5 M ORAL; LACTULOSE20 GM/301 ORAL; LEVOTHYROXINE75 MCG GT; MILK OF MA400 MG/51 GT; MULTI-DELYN237 ML GT; NORCO 5-325 TA1 EACH ORAL; ZINC SULFATE220 M1 ORAL
[2017-01-26] MEDS ORDERED: METOPROLOL TART25 MG GT (10:44)
[2017-01-26] MEDS ORDERED: PROMOD946 ML GT (10:44)
[2017-01-26 11:00] VITALS: BP 102/63
[2017-01-26 11:06] LABS: APPEARANCE,URINE CLEAR; KETONES,URINE 1+ (NEGATIVE); LEUKOCYTE ESTERASE ,URINE 1+ (NEGATIVE); NITRITE,URINE POSITIVE (NEGATIVE); PH,URINE 5 (4.5-8.0); PROTEIN,URINE 2+ (NEGATIVE); UROBILINOGEN,URINE 8 MG/DL (0.0-1.0)
--- NOTE | 2017-01-26 11:28 | Diagnostic Imaging Report ---
Indication: Chest pain Technique: One view of the chest Comparison: 6 21/04/16 Findings: Lungs and pleural space are clear. The heart size is normal. Tracheostomy is again demonstrated. Left chest bifocal pacemaker again demonstrated. There is no significant interim change Impression: No acute process
[2017-01-26] MEDS ORDERED: Acetaminophen 500mg (ES) tab ORAL ONE ×2 (11:45)
[2017-01-26 11:51] LABS: BACTERIA,URINE FEW /HPF; MUCUS,URINE FEW /LPF (NONE/OCC); SQUAMOUS EPITHELIAL CELL,UR FEW /LPF (NONE/OCC)
[2017-01-26 11:52] LABS: ICTOTEST NEGATIVE
--- NOTE | 2017-01-26 11:59 | Emergency Room Report ---
History of Present Illness General Chief Complaint: Fever Source: EMS Present Illness HPI Patient presents from nursing facility with reports of fever Patient herself is nonverbal Not able to provide any history Patient has a tracheostomy and previous stroke No obvious cough was noted by halfway History of present illness is significantly limited Was some question regarding abdominal distention Patient however does have a feeding tube No reports of any rash Allergies: Coded Allergies: No Known Allergies (Unverified , 08/14/16) Patient History Limited by: medical condition Past Medical History: see triage record Past Surgical History: unable to obtain Pertinent Family History: none Reviewed Nursing Documentation: PMH: Agreed, PSxH: Agreed Nursing Documentation-PMH Hx Cardiac Problems: Yes - Cardiac arrest 2014 Hx Pacemaker: Yes - left chest Hx Diabetes: Yes Hx Cancer: No Hx Gastrointestinal Problems: Yes Hx Neurological Problems: Yes Hx Cerebrovascular Accident: Yes Hx Transient Ischemic Attacks: Yes Hx Seizures: Yes Review of Systems All Other Systems: limited - Other than the ones mentioned in the history of present illness all others are reviewed however they do stay limited due to the patient's mental status Physical Exam Vital Signs Date Time Temp Pulse Resp B/P (MAP) Pulse Ox O2 Delivery O2 Flow Rate FiO2 01/26/17 10:33 99.3 117 20 116/77 98 Mechanical Ventilator [id number] EP Interpretation: reviewed, normal General Appearance: no apparent distress Head: normocephalic, atraumatic Eyes: bilateral eye PERRL ENT: dry mucus membranes, other - Tracheostomy in place no crepitus mild erythema left lower chin is noted Neck: supple, thyroid normal Respiratory: crackles - in both lower lower lobes no obvious retractions Cardiovascular #1: tachycardia Gastrointestinal: soft, no mass, no bruit, non-distended, other - feeding tube in place Musculoskeletal: other - Patient has contracted muscle exam is not obtainable Skin: no rash, palpation normal Lymphatic: no adenopathy Medical Decision Making Diagnostic Impression: Primary Impression: Fever Additional Impressions: Sepsis UTI (urinary tract infection) ER Course Multiple differentials considered Including but not limited to sepsis, including differentials such as UTI, bowel pathology, pneumonia Patient has IV hydration and blood work initiated At this time blood pressure continues to improve Heart rate is also improving Patient does have evidence of UTI admitted for further inpatient care Labs Test 01/26/17 11:00 01/26/17 11:14 Urine Color Brown Urine Appearance Clear Urine pH 5 (4.5-8.0) Urine Specific [place] 1.025 (1.005-1.035) Urine Protein 2+ (NEGATIVE) Urine Glucose (UA) Negative (NEGATIVE) Urine Ketones 1+ (NEGATIVE) Urine Occult Blood 4+ (NEGATIVE) Urine Nitrite Positive (NEGATIVE) Urine Bilirubin 1+ (NEGATIVE) Urine Ictotest Negative Urine Urobilinogen 8 MG/DL (0.0-1.0) Urine Leukocyte Esterase 1+ (NEGATIVE) Urine RBC 5-10 /HPF (0 - 2) Urine WBC 2-4 /HPF (0 - 2) Urine Squamous Epithelial Cells Few /LPF (NONE/OCC) Urine Bacteria Few /HPF (NONE) Urine Mucus Few /LPF (NONE/OCC) White Blood Count 8.0 K/UL (4.8-10.8) Red Blood Count 4.48 M/UL (4.20-5.40) Hemoglobin 12.4 G/DL (12.0-16.0) Hematocrit 39.3 % (37.0-47.0) Mean Corpuscular Volume 88 FL (80-99) Mean Corpuscular Hemoglobin 27.7 PG (27.0-31.0) Mean Corpuscular Hemoglobin Concent 31.5 G/DL (32.0-36.0) Red Cell Distribution Width 12.8 % (11.6-14.8) Platelet Count 343 K/UL (150-450) Mean Platelet Volume 7.5 FL (6.5-10.1) Neutrophils (%) (Auto) 80.5 % (45.0-75.0) Lymphocytes (%) (Auto) 15.7 % (20.0-45.0) Monocytes (%) (Auto) 2.7 % (1.0-10.0) Eosinophils (%) (Auto) 0.3 % (0.0-3.0) Basophils (%) (Auto) 0.9 % (0.0-2.0) Sodium Level 137 MMOL/L (136-145) Potassium Level 3.7 MMOL/L (3.5-5.1) Chloride Level 98 MMOL/L (98-107) Carbon Dioxide Level 24 MMOL/L (21-32) Anion Gap 15 mmol/L (5-15) Blood Urea Nitrogen 15 mg/dL (7-18) Creatinine 0.7 MG/DL (0.55-1.30) Estimat Glomerular Filtration Rate > 60 mL/min (>60) Glucose Level 107 MG/DL (74-106) Lactic Acid Level 3.80 mmol/L (0.66-2.22) Calcium Level 10.1 MG/DL (8.5-10.1) Total Bilirubin 0.8 MG/DL (0.2-1.0) Aspartate Amino Transf (AST/SGOT) 44 U/L (15-37) Alanine Aminotransferase (ALT/SGPT) 68 U/L (12-78) Alkaline Phosphatase 155 U/L (46-116) Total Creatine Kinase 108 U/L (26-308) Creatine Kinase MB 1.1 NG/ML (0.0-3.6) Creatine Kinase MB Relative Index 1.0 Troponin I 0.022 ng/mL (0.000-0.056) Pro-B-Type Natriuretic Peptide 112 pg/mL (0-125) Total Protein 9.4 G/DL (6.4-8.2) Albumin 3.4 G/DL (3.4-5.0) Globulin 6.0 g/dL Albumin/Globulin Ratio 0.6 (1.0-2.7) Lipase 4533 U/L (73-393) Rhythm Strip Diag. Results EP Interpretation: yes Rate: 110 Rhythm: no PVC's, no ectopy, other - sinus tach Chest X-Ray Diagnostic Results Chest X-Ray Diagnostic Results : Chest X-Ray Ordered: Yes # of Views/Limited/Complete: 1 View Indication: Shortness of Breath EP Interpretation: Yes Interpretation: no consolidation, no pneumothorax Impression: No acute disease Electronically Signed by: Nico Roberto DO Last Vital Signs Date Time Temp Pulse Resp B/P (MAP) Pulse Ox O2 Delivery O2 Flow Rate FiO2 01/26/17 11:00 101.1 112 18 102/63 99 Mechanical Ventilator Status: improved Disposition: ADMITTED INPATIENT Condition: Serious Referrals: MONSERRAT GRULLON (PCP) NICO ROBERTO D.O. Jan 26, 2017 11:58
[2017-01-26] MEDS ORDERED: Piperacillin/Tazobactam 3.375 GM in NS 55 ML IVPB ONE (12:00)
[2017-01-26 12:08] LABS: BASOPHILS % (AUTO) 0.9 % (0.0-2.0); EOSINOPHILS % (AUTO) 0.3 % (0.0-3.0); LYMPHOCYTES % (AUTO) 15.7 % (20.0-45.0); MEAN CORPUSCULAR HEMOGLOBIN 27.7 PG (27.0-31.0); MEAN CORPUSCULAR HGB CONC 31.5 G/DL (32.0-36.0); MEAN CORPUSCULAR VOLUME 88 FL (80-99); MEAN PLATELET VOLUME 7.5 FL (6.5-10.1); MONOCYTES % (AUTO) 2.7 % (1.0-10.0); NEUTROPHILS % (AUTO) 80.5 % (45.0-75.0); PLATELET COUNT 343 K/UL (150-450); RED BLOOD COUNT 4.48 M/UL (4.20-5.40); RED CELL DISTRIBUTION WIDTH 12.8 % (11.6-14.8)
[2017-01-26 12:15] LABS: ANION GAP 15 mmol/L (5-15); CALCIUM 10.1 MG/DL (8.5-10.1); CARBON DIOXIDE 24 MMOL/L (21-32); CHLORIDE 98 MMOL/L (98-107); CREATININE 0.7 MG/DL (0.55-1.30); GLOMERULAR FILTRATION RATE > 60 mL/min (>60); POTASSIUM 3.7 MMOL/L (3.5-5.1); SODIUM 137 MMOL/L (136-145)
[2017-01-26 12:28] LABS: ALANINE AMINOTRANSFERASE 68 U/L (12-78); ALBUMIN/GLOBULIN RATIO 0.6 (1.0-2.7); ASPARTATE AMINO TRANSFERASE 44 U/L (15-37); CKMB 1.1 NG/ML (0.0-3.6); LIPASE 4533 U/L (73-393); TOTAL PROTEIN 9.4 G/DL (6.4-8.2)
[2017-01-26 12:35] VITALS: BP 98/76
[2017-01-26 12:39] LABS: REFLEX LACTIC ACID YES OR NO YES
[2017-01-26 13:06] VITALS: BP 98/53
[2017-01-26 15:15] VITALS: BP 111/72
--- NOTE | 2017-01-26 17:12 | Diagnostic Imaging Report ---
Indication: PAIN Technique: Supine view of the abdomen 20 minutes after injection of feeding tube Comparison: none Findings: Contrast is seen within upper limits of normal caliber jejunum. No gastric contrast is identified, presumably has exited the stomach. Extravasated contrast is demonstrated. The colon is diffusely upper limits of normal in caliber, Zanes considerable stool. No Impression: Contrast within the proximal small bowel is upper limits of normal in caliber, post gastrostomy contrast injection Nonspecific prominence to the colonic bowel gas pattern diffusely, probably functional in nature
[2017-01-26] MEDS ORDERED: Albuterol ud Inhalation HHN PRN (18:00)
[2017-01-26] MEDS ORDERED: Acetaminophen Soln 160mg/5ml ORAL PRN (18:00)
[2017-01-26] MEDS ORDERED: Zolpidem 5mg tab GT PRN (18:15)
[2017-01-26] MEDS: Vancomycin 1gm in Dextrose 275ml IVPB SCH (19:57)
[2017-01-26 20:00] VITALS: BP 112/68
[2017-01-26] MEDS: Heparin 5000 units/ml inj SUBQ SCH (20:05)
[2017-01-26] MEDS: Piperacillin/Tazobactam 3.375 GM in D5W 55 ML IVPB SCH (21:32)
[2017-01-27] VITALS: BP 119/78
[2017-01-27] MEDS ORDERED: Zosyn 2.25gm inj IV SCH
[2017-01-27 04:00] VITALS: BP 114/68
[2017-01-27] MEDS: Vancomycin 1gm in Dextrose 275ml IVPB SCH ×3 (04:08→20:34)
[2017-01-27] MEDS: Acetaminophen 650mg/20.3ml NG PRN ×2 (04:30→20:34)
[2017-01-27 05:19] LABS: BASOPHILS % (AUTO) 0.4 % (0.0-2.0); EOSINOPHILS % (AUTO) 4.7 % (0.0-3.0); LYMPHOCYTES % (AUTO) 17.9 % (20.0-45.0); MEAN CORPUSCULAR HEMOGLOBIN 28.4 PG (27.0-31.0); MEAN CORPUSCULAR HGB CONC 32.5 G/DL (32.0-36.0); MEAN CORPUSCULAR VOLUME 88 FL (80-99); MEAN PLATELET VOLUME 7.6 FL (6.5-10.1); MONOCYTES % (AUTO) 5.2 % (1.0-10.0); NEUTROPHILS % (AUTO) 71.8 % (45.0-75.0); PLATELET COUNT 312 K/UL (150-450); RED BLOOD COUNT 3.67 M/UL (4.20-5.40); RED CELL DISTRIBUTION WIDTH 12.9 % (11.6-14.8); WHITE BLOOD COUNT 10.8 K/UL (4.8-10.8)
[2017-01-27 05:38] LABS: ANION GAP 8 mmol/L (5-15); CALCIUM 9.2 MG/DL (8.5-10.1); CARBON DIOXIDE 27 MMOL/L (21-32); CHLORIDE 103 MMOL/L (98-107); CREATININE 0.7 MG/DL (0.55-1.30); GLOMERULAR FILTRATION RATE > 60 mL/min (>60); POTASSIUM 3.4 MMOL/L (3.5-5.1); SODIUM 138 MMOL/L (136-145)
[2017-01-27] MEDS: Piperacillin/Tazobactam 3.375 GM in D5W 55 ML IVPB SCH ×3 (06:07→21:29)
[2017-01-27 08:00] VITALS: BP 114/71
[2017-01-27] MEDS ORDERED: Metoprolol 25mg tab GT SCH (09:00)
[2017-01-27] MEDS: Milk of Magnesia 30ml Ud GT SCH (09:00)
[2017-01-27] MEDS: Zinc Sulfate 220mg cap GT SCH (09:17)
[2017-01-27] MEDS: Heparin 5000 units/ml inj SUBQ SCH ×2 (09:18→20:36)
--- NOTE | 2017-01-27 09:20 | History & Physical ---
History and Physical History & Physicial Patient presents from nursing facility with reports of fever, tachycardia no clear etiology. patient awake and alert. was somewhat tachypneic as well Allergies: No Known Allergies (Unverified , 08/14/16) Past Medical History: CVA, CPA, pneumothorax, pacemaker, low thyroid Past Surgical History: trach and GT Pertinent Family History: none Reviewed of systems: unable physical exam WDWN ill appearing NAD clear breath sounds bilaterally without rhonchi or wheeze [id number] without MRG NABS nontender no HSM; GT trach no CC contractures Laboratory Tests Test 01/26/17 11:00 01/26/17 11:14 01/26/17 12:55 01/27/17 03:55 Urine Color Brown Urine Appearance Clear Urine pH 5 (4.5-8.0) Urine Specific [place] 1.025 (1.005-1.035) Urine Protein 2+ (NEGATIVE) H Urine Glucose (UA) Negative (NEGATIVE) Urine Ketones 1+ (NEGATIVE) H Urine Occult Blood 4+ (NEGATIVE) H Urine Nitrite Positive (NEGATIVE) H Urine Bilirubin 1+ (NEGATIVE) H Urine Ictotest Negative Urine Urobilinogen 8 MG/DL (0.0-1.0) H Urine Leukocyte Esterase 1+ (NEGATIVE) H Urine RBC 5-10 /HPF (0 - 2) H Urine WBC 2-4 /HPF (0 - 2) Urine Squamous Epithelial Cells Few /LPF (NONE/OCC) Urine Bacteria Few /HPF (NONE) Urine Mucus Few /LPF (NONE/OCC) H White Blood Count 8.0 K/UL (4.8-10.8) 10.8 K/UL (4.8-10.8) Red Blood Count 4.48 M/UL (4.20-5.40) 3.67 M/UL (4.20-5.40) L Hemoglobin 12.4 G/DL (12.0-16.0) 10.4 G/DL (12.0-16.0) L Hematocrit 39.3 % (37.0-47.0) 32.1 % (37.0-47.0) L Mean Corpuscular Volume 88 FL (80-99) 88 FL (80-99) Mean Corpuscular Hemoglobin 27.7 PG (27.0-31.0) 28.4 PG (27.0-31.0) Mean Corpuscular Hemoglobin Concent 31.5 G/DL (32.0-36.0) L 32.5 G/DL (32.0-36.0) Red Cell Distribution Width 12.8 % (11.6-14.8) 12.9 % (11.6-14.8) Platelet Count 343 K/UL (150-450) 312 K/UL (150-450) Mean Platelet Volume 7.5 FL (6.5-10.1) 7.6 FL (6.5-10.1) Neutrophils (%) (Auto) 80.5 % (45.0-75.0) H 71.8 % (45.0-75.0) Lymphocytes (%) (Auto) 15.7 % (20.0-45.0) L 17.9 % (20.0-45.0) L Monocytes (%) (Auto) 2.7 % (1.0-10.0) 5.2 % (1.0-10.0) Eosinophils (%) (Auto) 0.3 % (0.0-3.0) 4.7 % (0.0-3.0) H Basophils (%) (Auto) 0.9 % (0.0-2.0) 0.4 % (0.0-2.0) Sodium Level 137 MMOL/L (136-145) 138 MMOL/L (136-145) Potassium Level 3.7 MMOL/L (3.5-5.1) 3.4 MMOL/L (3.5-5.1) L Chloride Level 98 MMOL/L (98-107) 103 MMOL/L (98-107) Carbon Dioxide Level 24 MMOL/L (21-32) 27 MMOL/L (21-32) Anion Gap 15 mmol/L (5-15) 8 mmol/L (5-15) Blood Urea Nitrogen 15 mg/dL (7-18) 12 mg/dL (7-18) Creatinine 0.7 MG/DL (0.55-1.30) 0.7 MG/DL (0.55-1.30) Estimat Glomerular Filtration Rate > 60 mL/min (>60) > 60 mL/min (>60) Glucose Level 107 MG/DL (74-106) H 107 MG/DL (74-106) H Lactic Acid Level 3.80 mmol/L (0.66-2.22) H 3.10 mmol/L (0.66-2.22) H Calcium Level 10.1 MG/DL (8.5-10.1) 9.2 MG/DL (8.5-10.1) Total Bilirubin 0.8 MG/DL (0.2-1.0) Aspartate Amino Transf (AST/SGOT) 44 U/L (15-37) H Alanine Aminotransferase (ALT/SGPT) 68 U/L (12-78) Alkaline Phosphatase 155 U/L (46-116) H Total Creatine Kinase 108 U/L (26-308) Creatine Kinase MB 1.1 NG/ML (0.0-3.6) Creatine Kinase MB Relative Index 1.0 Troponin I 0.022 ng/mL (0.000-0.056) Pro-B-Type Natriuretic Peptide 112 pg/mL (0-125) Total Protein 9.4 G/DL (6.4-8.2) H Albumin 3.4 G/DL (3.4-5.0) Globulin 6.0 g/dL Albumin/Globulin Ratio 0.6 (1.0-2.7) L Lipase 4533 U/L (73-393) H IMPRESSION sinus tachycardia possible sepsis respiratory failure trach CVA contractures hypothyroid PLAN supportive care SNF meds follow up cultures IV hydration dc once stable await cultures MONSERRAT GRULLON Jan 27, 2017 09:20
[2017-01-27 09:59] LABS: ABG ALLEN TEST POSITIVE; ABG BASE EXCESS 2.5; ABG PCO2 30.6 mmHg (35.0-45.0)
[2017-01-27 12:00] VITALS: BP 109/61
[2017-01-27 16:00] VITALS: BP 116/70
--- NOTE | 2017-01-27 18:22 | Cardiology Report ---
APPROVED REPORT EKG Measurement Heart [id number] Sinus tachycardia Non-specific STT abnormalities
[2017-01-27 20:00] VITALS: BP 103/70
[2017-01-27] MEDS ORDERED: KCl 10% 40mEq/30ml liquid GT ONE (20:00)
[2017-01-27] MEDS ORDERED: Tubing IV Secondary IV ONE (20:12)
[2017-01-27] MEDS: Metoprolol 25mg tab GT SCH (20:34)
[2017-01-28] VITALS: BP 114/72
[2017-01-28 04:00] VITALS: BP 110/68
[2017-01-28] MEDS: Vancomycin 1gm in Dextrose 275ml IVPB SCH ×3 (04:15→20:27)
[2017-01-28 05:19] LABS: MEAN CORPUSCULAR HEMOGLOBIN 28.3 PG (27.0-31.0); MEAN CORPUSCULAR HGB CONC 32.3 G/DL (32.0-36.0); MEAN CORPUSCULAR VOLUME 88 FL (80-99); MEAN PLATELET VOLUME 6.9 FL (6.5-10.1); PLATELET COUNT 322 K/UL (150-450); RED BLOOD COUNT 3.56 M/UL (4.20-5.40)
[2017-01-28 05:28] LABS: ANION GAP 10 mmol/L (5-15); CALCIUM 9.2 MG/DL (8.5-10.1); CARBON DIOXIDE 23 MMOL/L (21-32); CHLORIDE 105 MMOL/L (98-107); CREATININE 0.7 MG/DL (0.55-1.30); GLOMERULAR FILTRATION RATE > 60 mL/min (>60); PHOSPHORUS 1.2 MG/DL (2.5-4.9); POTASSIUM 3.5 MMOL/L (3.5-5.1); SODIUM 138 MMOL/L (136-145)
[2017-01-28] MEDS: Piperacillin/Tazobactam 3.375 GM in D5W 55 ML IVPB SCH ×2 (06:00→14:07)
--- NOTE | 2017-01-28 06:22 | General Progress Note ---
Assessment/Plan Assessment/Plan IMPRESSION sinus tachycardia possible sepsis respiratory failure trach CVA contractures hypothyroid PLAN supportive care SNF meds follow up cultures IV hydration dc once stable await cultures Subjective ROS Limited/Unobtainable: Yes Allergies: Coded Allergies: No Known Allergies (Unverified , 08/14/16) Objective Last 24 Hour Vital Signs Date Time Temp Pulse Resp B/P (MAP) Pulse Ox O2 Delivery O2 Flow Rate FiO2 01/28/17 05:48 109 20 30 01/28/17 04:00 115 01/28/17 04:00 98.4 109 20 110/68 100 Mechanical Ventilator 32 01/28/17 04:00 30 01/28/17 03:14 112 30 30 01/28/17 01:22 103 17 30 01/28/17 00:00 30 01/28/17 00:00 97 01/28/17 00:00 98.1 103 20 114/72 100 Mechanical Ventilator 32 01/27/17 23:27 104 29 30 01/27/17 21:04 97.9 01/27/17 21:04 107 20 30 01/27/17 21:04 97.9 01/27/17 20:34 113 112/68 01/27/17 20:25 100.1 01/27/17 20:00 99.5 113 20 103/70 100 Mechanical Ventilator 32 01/27/17 20:00 30 01/27/17 20:00 119 01/27/17 19:25 111 22 Mechanical Ventilator 30 01/27/17 19:24 111 22 30 01/27/17 17:04 30 01/27/17 17:04 113 26 30 01/27/17 16:00 32 01/27/17 16:00 99.7 115 31 116/70 100 Mechanical Ventilator 32 01/27/17 15:58 113 01/27/17 15:00 109 27 32 01/27/17 15:00 32 01/27/17 13:16 35 01/27/17 13:16 112 24 32 01/27/17 12:00 40 01/27/17 12:00 99.7 111 20 109/61 100 Mechanical Ventilator 40 01/27/17 11:55 103 01/27/17 11:26 110 23 35 01/27/17 10:17 105 20 35 01/27/17 09:05 121 24 40 01/27/17 09:01 119 114/71 01/27/17 08:01 119 27 Mechanical Ventilator 40 01/27/17 08:00 97.9 119 19 114/71 99 Mechanical Ventilator 40 01/27/17 08:00 116 01/27/17 08:00 40 01/27/17 07:33 119 18 40 Laboratory Tests 01/27/17 09:40: Arterial Blood pH 7.526H, Arterial Blood Partial Pressure CO2 30.6L, Arterial Blood Partial Pressure O2 134.4H, Arterial Blood HCO3 24.8, Arterial Blood Oxygen Saturation 98.7H, Arterial Blood Base Excess 2.5, Marty Test Positive 01/27/17 19:15: Vancomycin Level Trough 11.1 01/28/17 03:25: White Blood Count 14.0H, Red Blood Count 3.56L, Hemoglobin 10.1L, Hematocrit 31.3L, Mean Corpuscular Volume 88, Mean Corpuscular Hemoglobin 28.3, Mean Corpuscular Hemoglobin Concent 32.3, Red Cell Distribution Width 13.0, Platelet Count 322, Mean Platelet Volume 6.9, Neutrophils (%) (Auto) , Lymphocytes (%) ( Auto) , Monocytes (%) (Auto) , Eosinophils (%) (Auto) , Basophils (%) (Auto) , Neutrophils % (Manual) [Pending], Lymphocytes % (Manual) [Pending], Platelet Estimate [Pending], Platelet Morphology [Pending], Sodium Level 138, Potassium Level 3.5, Chloride Level 105, Carbon Dioxide Level 23, Anion Gap 10, Blood Urea Nitrogen 10, Creatinine 0.7, Estimat Glomerular Filtration Rate > 60, Glucose Level 124H, Calcium Level 9.2, Phosphorus Level 1.2L, Magnesium Level 2.0 Height (Feet): 5 Height (Inches): 9.00 Weight (Pounds): 180 Objective WDWN NAD clear breath sounds bilaterally without rhonchi or wheeze [id number] without MRG NABS nontender no HSM; GT no CC contractures MONSERRAT GRULLON Jan 28, 2017 06:22
[2017-01-28 07:47] LABS: BAND NEUTROPHILS % (MANUAL) 0 % (0-8); BASOPHILS % (MANUAL) 0 % (0-2); EOSINOPHILS % (MANUAL) 3 % (0-3); HYPOCHROMASIA 1+; LYMPHOCYTES % (MANUAL) 8 % (20-45); NEUTROPHILS % (MANUAL) 83 % (45-75); PLATELET ESTIMATE ADEQUATE; PLATELET MORPHOLOGY NORMAL; TOTAL CELLS COUNTED 100
[2017-01-28 08:00] VITALS: BP 121/73
[2017-01-28] MEDS: Acetaminophen 650mg/20.3ml NG PRN ×2 (09:41→17:05)
[2017-01-28] MEDS: Zinc Sulfate 220mg cap GT SCH (09:41)
[2017-01-28] MEDS: Metoprolol 25mg tab GT SCH ×2 (09:42→20:28)
[2017-01-28] MEDS: Heparin 5000 units/ml inj SUBQ SCH ×2 (09:45→20:30)
[2017-01-28] MEDS: Milk of Magnesia 30ml Ud GT SCH (09:49)
[2017-01-28 12:00] VITALS: BP 99/61
[2017-01-28 16:00] VITALS: BP 104/67
[2017-01-28 20:00] VITALS: BP 110/71
[2017-01-28] MEDS: metroNIDAZOLE 500mg tab ORAL SCH (21:59)
[2017-01-28] MEDS: Ertapenem 1 GM in NS 55 ML IVPB SCH (21:59)
[2017-01-29] VITALS: BP 117/69
[2017-01-29] MEDS: Vancomycin 1gm in Dextrose 275ml IVPB SCH ×3 (03:14→20:25)
[2017-01-29 04:00] VITALS: BP 121/78
[2017-01-29 05:38] LABS: BASOPHILS % (AUTO) 0.5 % (0.0-2.0); LYMPHOCYTES % (AUTO) 10.9 % (20.0-45.0); MEAN CORPUSCULAR HEMOGLOBIN 27.3 PG (27.0-31.0); MEAN CORPUSCULAR HGB CONC 31.4 G/DL (32.0-36.0); MEAN CORPUSCULAR VOLUME 87 FL (80-99); MEAN PLATELET VOLUME 6.8 FL (6.5-10.1); MONOCYTES % (AUTO) 5.1 % (1.0-10.0); NEUTROPHILS % (AUTO) 81.5 % (45.0-75.0); PLATELET COUNT 227 K/UL (150-450); RED BLOOD COUNT 3.37 M/UL (4.20-5.40); RED CELL DISTRIBUTION WIDTH 12.6 % (11.6-14.8); WHITE BLOOD COUNT 16.3 K/UL (4.8-10.8)
[2017-01-29 05:50] LABS: ANION GAP 7 mmol/L (5-15); CALCIUM 8.9 MG/DL (8.5-10.1); CARBON DIOXIDE 26 MMOL/L (21-32); CHLORIDE 105 MMOL/L (98-107); CREATININE 0.7 MG/DL (0.55-1.30); GLOMERULAR FILTRATION RATE > 60 mL/min (>60); POTASSIUM 3.2 MMOL/L (3.5-5.1); SODIUM 138 MMOL/L (136-145)
[2017-01-29] MEDS: metroNIDAZOLE 500mg tab ORAL SCH ×3 (05:59→21:43)
[2017-01-29 08:00] VITALS: BP 125/73
[2017-01-29] MEDS ORDERED: KCl 10% 40mEq/30ml liquid GT ONE (08:30)
--- NOTE | 2017-01-29 08:39 | Wound Care Consultation ---
Wound Assessment Wound Assessment #1: Wound Number: 1 Wound Present on Admission: Yes New Wound: No Status Change of Wound: No Wound Location Body Site Modif: mid Wound Location Body Site: sacral Wound Type: pressure ulcer Ledy Test: Does not Ledy Pressure Ulcer Stage: III Wound Thickness: Full Thickness Wound Length: 1.5 Wound Width: 1.0 Wound Depth: 0.1 Percent of Wound [place]/Red: 100 Wound Drainage Description: Serosanguineous Wound Drainage Odor: None/Absent Tissue Surrounding Wound: scar tissue Wound General Appearance: Reddened, Draining Wound Assessment #2: Wound Number: 2 Wound Present on Admission: Yes New Wound: No Status Change of Wound: No Wound Location Body Site Modif: right, anterior Wound Location Body Site: toe - 2nd, 3rd and 4th Wound Type: scab Ledy Test: Does not Ledy Wound Thickness: Full Thickness Percent of Wound Black/Brown: 100 - dry Wound Drainage Amount: None Wound Drainage Odor: None/Absent Tissue Surrounding Wound: Intact Wound General Appearance: Asymptomatic Wound Comment #1 Sacral stage III pressure ulcer #2 Right anterior 2nd, 3rd and 4rd dry scab Recommendation -Local wound care per protocol -Keep clean and dry -Turn and reposition -Optimize nutrition -Low air loss mattress -Offload both heels -Heel protector on both heels -Assess and f/u accordingly for any changes DANILO CATES RN Jan 29, 2017 08:39
[2017-01-29] MEDS: Milk of Magnesia 30ml Ud GT SCH (09:00)
[2017-01-29] MEDS: Metoprolol 25mg tab GT SCH ×2 (09:17→21:43)
[2017-01-29] MEDS: Acetaminophen 650mg/20.3ml NG PRN (09:19)
[2017-01-29] MEDS: Heparin 5000 units/ml inj SUBQ SCH ×2 (09:23→21:45)
[2017-01-29] MEDS: Zinc Sulfate 220mg cap GT SCH (09:23)
--- NOTE | 2017-01-29 11:27 | General Progress Note ---
Assessment/Plan Assessment/Plan IMPRESSION sinus tachycardia possible sepsis respiratory failure trach CVA contractures hypothyroid PLAN supportive care SNF meds follow up cultures IV hydration and monitor heart rhythm antibiotics adjusted dc once stable await cultures ID called Subjective Allergies: Coded Allergies: No Known Allergies (Unverified , 08/14/16) Subjective unable still tachycardic Objective Last 24 Hour Vital Signs Date Time Temp Pulse Resp B/P (MAP) Pulse Ox O2 Delivery O2 Flow Rate FiO2 01/29/17 11:05 115 24 30 01/29/17 09:49 99.5 01/29/17 09:17 127 125/73 01/29/17 09:07 127 30 30 01/29/17 08:00 101.1 123 20 125/73 99 Mechanical Ventilator 30 01/29/17 08:00 30 01/29/17 07:33 125 01/29/17 07:04 124 19 30 01/29/17 05:31 102 19 30 01/29/17 04:00 120 01/29/17 04:00 30 01/29/17 04:00 98.2 108 18 121/78 100 Mechanical Ventilator 30 01/29/17 03:24 110 19 30 01/29/17 01:35 99 21 30 01/29/17 00:00 97.9 110 18 117/69 100 Mechanical Ventilator 30 01/29/17 00:00 106 01/29/17 00:00 30 01/28/17 22:34 101 19 30 01/28/17 21:24 102 19 30 01/28/17 20:28 115 110/71 01/28/17 20:00 30 01/28/17 20:00 103 01/28/17 20:00 98.5 115 20 110/71 100 Mechanical Ventilator 30 01/28/17 19:33 105 26 30 01/28/17 17:21 113 19 30 01/28/17 16:00 30 01/28/17 16:00 114 01/28/17 16:00 101.6 110 20 104/67 100 Mechanical Ventilator 30 01/28/17 15:39 108 22 30 01/28/17 12:47 109 24 30 01/28/17 12:00 99.5 105 20 99/61 99 Mechanical Ventilator 30 01/28/17 12:00 110 01/28/17 12:00 30 Laboratory Tests 01/29/17 03:45: White Blood Count 16.3H, Red Blood Count 3.37L, Hemoglobin 9.2L, Hematocrit 29.3L, Mean Corpuscular Volume 87, Mean Corpuscular Hemoglobin 27.3, Mean Corpuscular Hemoglobin Concent 31.4L, Red Cell Distribution Width 12.6, Platelet Count 227, Mean Platelet Volume 6.8, Neutrophils (%) (Auto) 81.5H, Lymphocytes (%) (Auto) 10.9L, Monocytes (%) (Auto) 5.1, Eosinophils (%) (Auto) 2.0, Basophils (%) (Auto) 0.5, Sodium Level 138, Potassium Level 3.2L, Chloride Level 105, Carbon Dioxide Level 26, Anion Gap 7, Blood Urea Nitrogen 8, Creatinine 0.7, Estimat Glomerular Filtration Rate > 60, Glucose Level 125H, Calcium Level 8.9 Height (Feet): 5 Height (Inches): 9.00 Weight (Pounds): 180 Objective WDWN NAD clear breath sounds bilaterally without rhonchi or wheeze S1S2RR tachy without MRG NABS nontender no HSM; GT no CC contractures MONSERRAT GRULLON Jan 29, 2017 11:27
[2017-01-29 12:00] VITALS: BP 98/56
[2017-01-29 16:00] VITALS: BP 116/64
--- NOTE | 2017-01-29 19:45 | Consultation ---
DATE OF CONSULTATION: 01/29/2017 INFECTIOUS DISEASES CONSULTATION CONSULTING PHYSICIAN: Rubina Crawford M.D. REFERRING PHYSICIAN: Jasiel Johnson M.D. REASON FOR CONSULTATION: Possible pneumonia. HISTORY OF PRESENT ILLNESS: The patient is a 46-year-old lady with history of CVA, pneumothorax, pacemaker, respiratory failure status post tracheostomy who came in with fever and tachycardia. An Infectious Diseases consultation has been obtained for antibiotics. PAST MEDICAL HISTORY: 1. History of CVA. 2. Pneumothorax. 3. Pacemaker placement. 4. Hypothyroidism. 5. Respiratory failure, status post tracheostomy. 6. Status post G-tube placement. MEDICATIONS: As an inpatient, the patient is on ertapenem, Flagyl, metoprolol, milk of magnesia, zinc sulfate, Prevacid, Synthroid, IV vancomycin, subcutaneous heparin, Tylenol, Ambien, Mylanta, Proventil, Dulcolax. ALLERGIES: No known drug allergies. SOCIAL HISTORY: Unknown. FAMILY HISTORY: Unknown. REVIEW OF SYSTEMS: Unable to obtain currently. PHYSICAL EXAMINATION: VITAL SIGNS: Temperature of 98.4, T-max of 101.6, pulse of 110, respiratory rate 23, blood pressure 98/56. HEENT: Pupils are equally reactive to light and accommodation. Mouth appears clean without thrush. NECK: Supple. No adenopathy. No JVD. Tracheostomy site appears clean. CARDIOVASCULAR: Regular rate and rhythm. No murmurs. LUNGS: Clear to auscultation bilaterally. No crackles. No wheezes. ABDOMEN: Soft and nontender. G-tube site appears clean EXTREMITIES: No cyanosis. No clubbing. No edema LABORATORY AND DIAGNOSTIC DATA: White count 16.3, hemoglobin 9.2, hematocrit 29.3, MCV 87, platelet count of 227, neutrophils of 81%. Sodium 138, potassium 3.2, chloride 105, bicarb 25, BUN 8, creatinine 0.7, glucose 125. Calcium 8.9. UA showing 2 to 4 white cells. Blood cultures are negative so far. Chest x-ray was unremarkable. ASSESSMENT: This is a 46-year-old lady with history of cerebrovascular accident and respiratory failure, status post tracheostomy who comes in with fever and leukocytosis would be concerned regarding a urinary tract infection or possibly pneumonia, although the initial chest x-ray is negative. 1. Cerebrovascular accident. 2. Leukocytosis. PLAN: 1. Continue vancomycin, ertapenem, and Flagyl. 2. We will follow up on blood cultures and sputum cultures. 3. We will order urine cultures. 4. We will follow up cultures and adjust antibiotics accordingly. I would like to thank, Dr. Johnson for this consultation. Rubina Crawford M.D. DR: Kev JOB#: [id number] CC: Jasiel Johnson M.D.; Fax#: [phone]
[2017-01-29 20:00] VITALS: BP 114/68
[2017-01-29] MEDS: Ertapenem 1 GM in NS 55 ML IVPB SCH (21:45)
[2017-01-30] VITALS: BP 124/75
[2017-01-30] MEDS: Acetaminophen 650mg/20.3ml NG PRN (03:40)
[2017-01-30] MEDS: Vancomycin 1gm in Dextrose 275ml IVPB SCH ×3 (03:41→20:58)
[2017-01-30 04:00] VITALS: BP 114/70
[2017-01-30 06:14] LABS: BASOPHILS % (AUTO) 0.4 % (0.0-2.0); EOSINOPHILS % (AUTO) 1.8 % (0.0-3.0); LYMPHOCYTES % (AUTO) 10.6 % (20.0-45.0); MEAN CORPUSCULAR HEMOGLOBIN 27.8 PG (27.0-31.0); MEAN CORPUSCULAR HGB CONC 32.1 G/DL (32.0-36.0); MEAN CORPUSCULAR VOLUME 87 FL (80-99); MONOCYTES % (AUTO) 3.3 % (1.0-10.0); NEUTROPHILS % (AUTO) 83.9 % (45.0-75.0); PLATELET COUNT 319 K/UL (150-450); RED BLOOD COUNT 3.12 M/UL (4.20-5.40); RED CELL DISTRIBUTION WIDTH 12.8 % (11.6-14.8); WHITE BLOOD COUNT 17.5 K/UL (4.8-10.8)
[2017-01-30 06:38] LABS: ANION GAP 9 mmol/L (5-15); CALCIUM 8.9 MG/DL (8.5-10.1); CARBON DIOXIDE 25 MMOL/L (21-32); CHLORIDE 105 MMOL/L (98-107); CREATININE 0.8 MG/DL (0.55-1.30); GLOMERULAR FILTRATION RATE > 60 mL/min (>60); POTASSIUM 3.1 MMOL/L (3.5-5.1); SODIUM 139 MMOL/L (136-145)
[2017-01-30] MEDS: metroNIDAZOLE 500mg tab ORAL SCH ×3 (06:59→21:29)
[2017-01-30 08:00] VITALS: BP 104/68
--- NOTE | 2017-01-30 08:23 | General Progress Note ---
Assessment/Plan Assessment/Plan IMPRESSION sinus tachycardia possible sepsis respiratory failure trach CVA contractures hypothyroid PLAN supportive care SNF meds follow up cultures- thus far negative replace k IV hydration and monitor heart rhythm antibiotics adjusted and ID noted dc once stable await cultures impression, plan, and exam edited and reviewed in detail care discussed with RN Subjective Allergies: Coded Allergies: No Known Allergies (Unverified , 08/14/16) Subjective unable still tachycardic but improved Objective Last 24 Hour Vital Signs Date Time Temp Pulse Resp B/P (MAP) Pulse Ox O2 Delivery O2 Flow Rate FiO2 01/30/17 08:00 99.4 104 20 104/68 100 Mechanical Ventilator 30 01/30/17 08:00 30 01/30/17 07:21 109 22 30 01/30/17 05:14 99 23 30 01/30/17 04:10 101.0 01/30/17 04:00 30 01/30/17 04:00 108 01/30/17 04:00 102.2 114 23 114/70 100 Mechanical Ventilator 30 01/30/17 03:20 105 20 30 01/30/17 01:14 103 22 30 01/30/17 00:00 98.2 103 20 124/75 100 Mechanical Ventilator 30 01/30/17 00:00 108 01/30/17 00:00 30 01/29/17 23:00 109 26 30 01/29/17 21:43 102 114/68 01/29/17 21:04 102 16 30 01/29/17 20:00 98.2 112 28 114/68 100 Mechanical Ventilator 30 01/29/17 20:00 30 01/29/17 20:00 103 01/29/17 19:00 94 12 30 01/29/17 16:57 99 14 30 01/29/17 16:34 106 01/29/17 16:00 98.4 104 28 116/64 100 Mechanical Ventilator 30 01/29/17 16:00 30 01/29/17 15:21 103 19 30 01/29/17 12:30 105 31 30 01/29/17 12:00 30 01/29/17 12:00 98.4 110 23 98/56 99 Mechanical Ventilator 30 01/29/17 11:27 110 01/29/17 11:05 115 24 30 01/29/17 09:17 127 125/73 01/29/17 09:07 127 30 30 Intake and Output 01/30/17 01/31/17 19:00 07:00 Intake Total 100 ml Balance 100 ml IV Total 100 ml Laboratory Tests 01/30/17 04:50: White Blood Count 17.5H, Red Blood Count 3.12L, Hemoglobin 8.7L, Hematocrit 27.0L, Mean Corpuscular Volume 87, Mean Corpuscular Hemoglobin 27.8, Mean Corpuscular Hemoglobin Concent 32.1, Red Cell Distribution Width 12.8, Platelet Count 319, Mean Platelet Volume 7.0, Neutrophils (%) (Auto) 83.9H, Lymphocytes ( %) (Auto) 10.6L, Monocytes (%) (Auto) 3.3, Eosinophils (%) (Auto) 1.8, Basophils (%) (Auto) 0.4, Sodium Level 139, Potassium Level 3.1L, Chloride Level 105, Carbon Dioxide Level 25, Anion Gap 9, Blood Urea Nitrogen 6L, Creatinine 0.8, Estimat Glomerular Filtration Rate > 60, Glucose Level 149H, Calcium Level 8.9 Height (Feet): 5 Height (Inches): 9.00 Weight (Pounds): 180 Objective WDWN NAD clear breath sounds bilaterally without rhonchi or wheeze S1S2RR tachy without MRG NABS nontender no HSM; GT no CC contractures MONSERRAT GRULLON Jan 30, 2017 08:23
[2017-01-30] MEDS: Milk of Magnesia 30ml Ud GT SCH (09:00)
[2017-01-30] MEDS: Heparin 5000 units/ml inj SUBQ SCH ×2 (09:05→21:29)
[2017-01-30] MEDS: Zinc Sulfate 220mg cap GT SCH (09:05)
[2017-01-30] MEDS: Metoprolol 25mg tab GT SCH ×2 (09:06→21:00)
[2017-01-30] MEDS ORDERED: KCl 10% 20 mEq/15ml liquid GT ONE ×2 (09:30)
--- NOTE | 2017-01-30 10:45 | Infectious Diseases Prog Note ---
Assessment/Plan Assessment/Plan antibiotics : vancomycin iv, ertapenem, flagyl A 1. fever 2. leucocytosis 3. respiratory failure 4. CVA P 1. continue vancomycin iv, flagyl 2. d/c ertapenem 3. start meropenem 4. sputum culture Subjective ROS Limited/Unobtainable: Yes Allergies: Coded Allergies: No Known Allergies (Unverified , 08/14/16) Objective Vital Signs Last 24 Hour Vital Signs Date Time Temp Pulse Resp B/P (MAP) Pulse Ox O2 Delivery O2 Flow Rate FiO2 01/30/17 10:31 103 20 30 01/30/17 09:06 102 104/68 01/30/17 08:37 102 22 30 01/30/17 08:00 99.4 104 20 104/68 100 Mechanical Ventilator 30 01/30/17 08:00 30 01/30/17 07:34 101 01/30/17 07:21 109 22 30 01/30/17 05:14 99 23 30 01/30/17 04:10 101.0 01/30/17 04:00 30 01/30/17 04:00 108 01/30/17 04:00 102.2 114 23 114/70 100 Mechanical Ventilator 30 01/30/17 03:20 105 20 30 01/30/17 01:14 103 22 30 01/30/17 00:00 98.2 103 20 124/75 100 Mechanical Ventilator 30 01/30/17 00:00 108 01/30/17 00:00 30 01/29/17 23:00 109 26 30 01/29/17 21:43 102 114/68 01/29/17 21:04 102 16 30 01/29/17 20:00 98.2 112 28 114/68 100 Mechanical Ventilator 30 01/29/17 20:00 30 01/29/17 20:00 103 01/29/17 19:00 94 12 30 01/29/17 16:57 99 14 30 01/29/17 16:34 106 01/29/17 16:00 98.4 104 28 116/64 100 Mechanical Ventilator 30 01/29/17 16:00 30 01/29/17 15:21 103 19 30 01/29/17 12:30 105 31 30 01/29/17 12:00 30 01/29/17 12:00 98.4 110 23 98/56 99 Mechanical Ventilator 30 01/29/17 11:27 110 01/29/17 11:05 115 24 30 Height (Feet): 5 Height (Inches): 9.00 Weight (Pounds): 180 HEENT: status post trach Respiratory/Chest: lungs clear Cardiovascular: normal rate, regular rhythm, no gallop/murmur Abdomen: soft, non tender, other - GT Extremities: no edema Microbiology Date/Time Source Procedure Growth Status 01/29/17 12:14 Urine,Clean Catch Urine Culture - Preliminary NO GROWTH Resulted Laboratory Tests Test 01/30/17 04:50 White Blood Count 17.5 K/UL (4.8-10.8) H Red Blood Count 3.12 M/UL (4.20-5.40) L Hemoglobin 8.7 G/DL (12.0-16.0) L Hematocrit 27.0 % (37.0-47.0) L Mean Corpuscular Volume 87 FL (80-99) Mean Corpuscular Hemoglobin 27.8 PG (27.0-31.0) Mean Corpuscular Hemoglobin Concent 32.1 G/DL (32.0-36.0) Red Cell Distribution Width 12.8 % (11.6-14.8) Platelet Count 319 K/UL (150-450) Mean Platelet Volume 7.0 FL (6.5-10.1) Neutrophils (%) (Auto) 83.9 % (45.0-75.0) H Lymphocytes (%) (Auto) 10.6 % (20.0-45.0) L Monocytes (%) (Auto) 3.3 % (1.0-10.0) Eosinophils (%) (Auto) 1.8 % (0.0-3.0) Basophils (%) (Auto) 0.4 % (0.0-2.0) Sodium Level 139 MMOL/L (136-145) Potassium Level 3.1 MMOL/L (3.5-5.1) L Chloride Level 105 MMOL/L (98-107) Carbon Dioxide Level 25 MMOL/L (21-32) Anion Gap 9 mmol/L (5-15) Blood Urea Nitrogen 6 mg/dL (7-18) L Creatinine 0.8 MG/DL (0.55-1.30) Estimat Glomerular Filtration Rate > 60 mL/min (>60) Glucose Level 149 MG/DL (74-106) H Calcium Level 8.9 MG/DL (8.5-10.1) MICHAEL TAVARES Jan 30, 2017 10:45
[2017-01-30 12:00] VITALS: BP 140/50
[2017-01-30] MEDS: Meropenem 1 GM in NS 55 ML IVPB SCH ×2 (12:37→21:29)
[2017-01-30] MEDS ORDERED: Tubing IV Secondary IV ONE (15:02)
[2017-01-30 16:00] VITALS: BP 123/70
[2017-01-30 20:00] VITALS: BP 98/64
[2017-01-31] VITALS: BP 103/66
[2017-01-31] MEDS: Acetaminophen 650mg/20.3ml NG PRN ×2 (01:32→09:14)
[2017-01-31 04:00] VITALS: BP 105/68
[2017-01-31] MEDS: Vancomycin 1gm in Dextrose 275ml IVPB SCH ×3 (04:00→20:16)
[2017-01-31 05:18] LABS: ANION GAP 10 mmol/L (5-15); BASOPHILS % (AUTO) 0.9 % (0.0-2.0); CARBON DIOXIDE 25 MMOL/L (21-32); CHLORIDE 105 MMOL/L (98-107); CREATININE 0.7 MG/DL (0.55-1.30); EOSINOPHILS % (AUTO) 2.5 % (0.0-3.0); GLOMERULAR FILTRATION RATE > 60 mL/min (>60); LYMPHOCYTES % (AUTO) 12.3 % (20.0-45.0); MEAN CORPUSCULAR HEMOGLOBIN 28.4 PG (27.0-31.0); MEAN CORPUSCULAR HGB CONC 32.8 G/DL (32.0-36.0); MEAN CORPUSCULAR VOLUME 87 FL (80-99); MEAN PLATELET VOLUME 5.9 FL (6.5-10.1); MONOCYTES % (AUTO) 6.3 % (1.0-10.0); PLATELET COUNT 332 K/UL (150-450); POTASSIUM 3.6 MMOL/L (3.5-5.1); RED BLOOD COUNT 3.05 M/UL (4.20-5.40); RED CELL DISTRIBUTION WIDTH 12.8 % (11.6-14.8); SODIUM 140 MMOL/L (136-145); WHITE BLOOD COUNT 14.5 K/UL (4.8-10.8)
[2017-01-31] MEDS: Meropenem 1 GM in NS 55 ML IVPB SCH ×3 (05:29→23:33)
[2017-01-31] MEDS: metroNIDAZOLE 500mg tab ORAL SCH ×3 (05:58→23:33)
--- NOTE | 2017-01-31 07:38 | General Progress Note ---
Assessment/Plan Assessment/Plan IMPRESSION sinus tachycardia possible sepsis respiratory failure trach CVA contractures hypothyroid PLAN supportive care SNF meds IV hydration and monitor heart rhythm antibiotics adjusted and ID noted dc once stable await cultures- thus far all negative impression, plan, and exam edited and reviewed in detail care discussed with RN Subjective ROS Limited/Unobtainable: Yes Allergies: Coded Allergies: No Known Allergies (Unverified , 08/14/16) Subjective unable hemodynamics improved overall Objective Last 24 Hour Vital Signs Date Time Temp Pulse Resp B/P (MAP) Pulse Ox O2 Delivery O2 Flow Rate FiO2 01/31/17 07:11 99 27 30 01/31/17 04:31 103 26 30 01/31/17 04:00 97.9 104 26 105/68 99 Mechanical Ventilator 30 01/31/17 04:00 103 01/31/17 04:00 30 01/31/17 02:05 97.9 01/31/17 01:36 108 19 30 01/31/17 00:03 104 01/31/17 00:00 30 01/31/17 00:00 100.9 109 26 103/66 99 Mechanical Ventilator 30 01/30/17 22:29 101 19 30 01/30/17 21:09 103 21 30 01/30/17 21:00 103 98/64 01/30/17 20:00 30 01/30/17 20:00 99.3 112 28 98/64 100 Mechanical Ventilator 30 01/30/17 19:32 101 19 30 01/30/17 17:05 115 26 30 01/30/17 16:12 117 01/30/17 16:00 99.7 117 28 123/70 98 Mechanical Ventilator 30 01/30/17 16:00 30 01/30/17 15:00 105 24 30 01/30/17 12:35 101 20 30 01/30/17 12:00 30 01/30/17 12:00 98.7 104 21 140/50 100 Mechanical Ventilator 30 01/30/17 11:46 105 01/30/17 10:31 103 20 30 01/30/17 09:06 102 104/68 01/30/17 08:37 102 22 30 01/30/17 08:00 99.4 104 20 104/68 100 Mechanical Ventilator 30 01/30/17 08:00 30 Laboratory Tests 01/31/17 03:25: White Blood Count 14.5H, Red Blood Count 3.05L, Hemoglobin 8.7L, Hematocrit 26.5L, Mean Corpuscular Volume 87, Mean Corpuscular Hemoglobin 28.4, Mean Corpuscular Hemoglobin Concent 32.8, Red Cell Distribution Width 12.8, Platelet Count 332, Mean Platelet Volume 5.9L, Neutrophils (%) (Auto) 78.0H, Lymphocytes (%) (Auto) 12.3L, Monocytes (%) (Auto) 6.3, Eosinophils (%) (Auto) 2.5, Basophils (%) (Auto) 0.9, Sodium Level 140, Potassium Level 3.6, Chloride Level 105, Carbon Dioxide Level 25, Anion Gap 10, Blood Urea Nitrogen 5L, Creatinine 0.7, Estimat Glomerular Filtration Rate > 60, Glucose Level 108H, Calcium Level 9.0 Height (Feet): 5 Height (Inches): 9.00 Weight (Pounds): 180 Objective WDWN NAD clear breath sounds bilaterally without rhonchi or wheeze S1S2RR tachy without MRG NABS nontender no HSM; GT no CC contractures MONSERRAT GRULLON Jan 31, 2017 07:38
[2017-01-31 08:00] VITALS: BP 109/73
[2017-01-31] MEDS: Milk of Magnesia 30ml Ud GT SCH (09:14)
[2017-01-31] MEDS: Zinc Sulfate 220mg cap GT SCH (09:15)
[2017-01-31] MEDS: Metoprolol 25mg tab GT SCH ×2 (09:16→20:50)
[2017-01-31] MEDS: Heparin 5000 units/ml inj SUBQ SCH ×2 (09:19→21:11)
[2017-01-31 12:00] VITALS: BP 114/73
--- NOTE | 2017-01-31 12:39 | Infectious Diseases Prog Note ---
Assessment/Plan Assessment/Plan antibiotics : vancomycin iv, meropenem, flagyl A 1. gram negative pneumonia 2. fever improving 3. leucocytosis improving 4. respiratory failure 5. CVA P 1. continue vancomycin iv, flagyl 2. continue meropenem 3. will follow up cultures Subjective ROS Limited/Unobtainable: Yes Allergies: Coded Allergies: No Known Allergies (Unverified , 08/14/16) Objective Vital Signs Last 24 Hour Vital Signs Date Time Temp Pulse Resp B/P (MAP) Pulse Ox O2 Delivery O2 Flow Rate FiO2 01/31/17 12:36 100 23 30 01/31/17 11:25 98 34 30 01/31/17 09:44 99.9 01/31/17 09:28 102 24 30 01/31/17 09:16 109 109/63 01/31/17 08:00 30 01/31/17 08:00 104 01/31/17 08:00 100.5 104 29 109/73 99 01/31/17 07:11 99 27 30 01/31/17 04:31 103 26 30 01/31/17 04:00 97.9 104 26 105/68 99 Mechanical Ventilator 30 01/31/17 04:00 103 01/31/17 04:00 30 01/31/17 01:36 108 19 30 01/31/17 00:03 104 01/31/17 00:00 30 01/31/17 00:00 100.9 109 26 103/66 99 Mechanical Ventilator 30 01/30/17 22:29 101 19 30 01/30/17 21:09 103 21 30 01/30/17 21:00 103 98/64 01/30/17 20:00 30 01/30/17 20:00 99.3 112 28 98/64 100 Mechanical Ventilator 30 01/30/17 19:32 101 19 30 01/30/17 17:05 115 26 30 01/30/17 16:12 117 01/30/17 16:00 99.7 117 28 123/70 98 Mechanical Ventilator 30 01/30/17 16:00 30 01/30/17 15:00 105 24 30 Height (Feet): 5 Height (Inches): 9.00 Weight (Pounds): 180 HEENT: status post trach Respiratory/Chest: lungs clear Cardiovascular: normal rate, regular rhythm, no gallop/murmur Abdomen: soft, non tender, other - GT Extremities: no edema Microbiology Date/Time Source Procedure Growth Status 01/29/17 12:15 Sputum Gram Stain - Final Resulted 01/29/17 12:15 Sputum Culture - Preliminary Gram Negative Bacillus 1 Gram Negative Bacillus 2 Resulted 01/29/17 12:14 Urine,Clean Catch Urine Culture - Preliminary NO GROWTH AFTER 24 HOURS Resulted Laboratory Tests Test 01/31/17 03:25 White Blood Count 14.5 K/UL (4.8-10.8) H Red Blood Count 3.05 M/UL (4.20-5.40) L Hemoglobin 8.7 G/DL (12.0-16.0) L Hematocrit 26.5 % (37.0-47.0) L Mean Corpuscular Volume 87 FL (80-99) Mean Corpuscular Hemoglobin 28.4 PG (27.0-31.0) Mean Corpuscular Hemoglobin Concent 32.8 G/DL (32.0-36.0) Red Cell Distribution Width 12.8 % (11.6-14.8) Platelet Count 332 K/UL (150-450) Mean Platelet Volume 5.9 FL (6.5-10.1) L Neutrophils (%) (Auto) 78.0 % (45.0-75.0) H Lymphocytes (%) (Auto) 12.3 % (20.0-45.0) L Monocytes (%) (Auto) 6.3 % (1.0-10.0) Eosinophils (%) (Auto) 2.5 % (0.0-3.0) Basophils (%) (Auto) 0.9 % (0.0-2.0) Sodium Level 140 MMOL/L (136-145) Potassium Level 3.6 MMOL/L (3.5-5.1) Chloride Level 105 MMOL/L (98-107) Carbon Dioxide Level 25 MMOL/L (21-32) Anion Gap 10 mmol/L (5-15) Blood Urea Nitrogen 5 mg/dL (7-18) L Creatinine 0.7 MG/DL (0.55-1.30) Estimat Glomerular Filtration Rate > 60 mL/min (>60) Glucose Level 108 MG/DL (74-106) H Calcium Level 9.0 MG/DL (8.5-10.1) MICHAEL TAVARES Jan 31, 2017 12:39
--- NOTE | 2017-01-31 15:28 | Diagnostic Imaging Report ---
Indication: Dyspnea Technique: One view of the chest Comparison: : 217 Findings: There is interim development of hazy opacity in the left mid and lower lung. There is generalized interstitial congestion bilaterally. There may be some hazy parenchymal opacity of the right lung base as well. Pacemaker, tracheostomy remain. Impression: Interstitial edema, possible hazy infiltrates, likely bilateral left greater right pleural effusions, developing since 01/26/2017
[2017-01-31 16:00] VITALS: BP 117/54
[2017-01-31 20:00] VITALS: BP 105/70
[2017-02-01] VITALS: BP 121/67
[2017-02-01 04:00] VITALS: BP 111/71
[2017-02-01] MEDS: Vancomycin 1gm in Dextrose 275ml IVPB SCH (04:50)
[2017-02-01] MEDS: Meropenem 1 GM in NS 55 ML IVPB SCH (06:35)
[2017-02-01] MEDS: metroNIDAZOLE 500mg tab ORAL SCH ×3 (06:35→22:11)
--- NOTE | 2017-02-01 07:56 | General Progress Note ---
Assessment/Plan Assessment/Plan IMPRESSION sinus tachycardia possible sepsis respiratory failure trach CVA contractures hypothyroid PLAN supportive care SNF meds IV hydration may dc as tolerating feeds antibiotics adjusted and ID noted dc planning consider inhaled amikacin and levaquin on discharge impression, plan, and exam edited and reviewed in detail care discussed with RN Subjective Allergies: Coded Allergies: No Known Allergies (Unverified , 08/14/16) Subjective unable hemodynamics better Objective Last 24 Hour Vital Signs Date Time Temp Pulse Resp B/P (MAP) Pulse Ox O2 Delivery O2 Flow Rate FiO2 02/01/17 07:37 100 26 30 02/01/17 05:08 98 26 30 02/01/17 04:00 89 02/01/17 04:00 99.1 103 25 111/71 100 02/01/17 04:00 30 02/01/17 03:14 107 30 30 02/01/17 01:30 100 21 30 02/01/17 00:00 99.7 101 30 121/67 100 02/01/17 00:00 97 02/01/17 00:00 30 01/31/17 23:29 101 26 30 01/31/17 21:30 100 20 30 01/31/17 20:50 103 105/70 01/31/17 20:00 30 01/31/17 20:00 103 01/31/17 20:00 99.8 103 25 105/70 97 01/31/17 19:30 104 19 30 01/31/17 16:46 98 28 30 01/31/17 16:05 30 01/31/17 16:00 95 01/31/17 16:00 100.3 95 31 117/54 97 01/31/17 15:12 95 26 30 01/31/17 12:36 100 23 30 01/31/17 12:00 100.3 98 25 114/73 100 01/31/17 12:00 100 01/31/17 12:00 30 01/31/17 11:25 98 34 30 01/31/17 09:44 99.9 01/31/17 09:28 102 24 30 01/31/17 09:16 109 109/63 01/31/17 08:00 30 01/31/17 08:00 104 01/31/17 08:00 100.5 104 29 109/73 99 Height (Feet): 5 Height (Inches): 9.00 Weight (Pounds): 180 Objective WDWN NAD clear breath sounds bilaterally without rhonchi or wheeze [id number] without MRG NABS nontender no HSM; GT no CC contractures MONSERRAT GRULLON Feb 01, 2017 07:56
[2017-02-01 08:00] VITALS: BP 125/83
--- NOTE | 2017-02-01 08:11 | Infectious Diseases Prog Note ---
Assessment/Plan Assessment/Plan A; Sepsis VAP with Pseudomonas & Stenotrophomonas VDRF Anemia P; Change antibiotic to Levaquin & Cefepime at time of discharge continue Levaquin & change Cefepime to Tobramycin inhaler Subjective ROS Limited/Unobtainable: Yes Constitutional: Reports: fever, other - T hpt=739.3 Allergies: Coded Allergies: No Known Allergies (Unverified , 08/14/16) Objective Vital Signs Last 24 Hour Vital Signs Date Time Temp Pulse Resp B/P (MAP) Pulse Ox O2 Delivery O2 Flow Rate FiO2 02/01/17 07:37 100 26 30 02/01/17 05:08 98 26 30 02/01/17 04:00 89 02/01/17 04:00 99.1 103 25 111/71 100 02/01/17 04:00 30 02/01/17 03:14 107 30 30 02/01/17 01:30 100 21 30 02/01/17 00:00 99.7 101 30 121/67 100 02/01/17 00:00 97 02/01/17 00:00 30 01/31/17 23:29 101 26 30 01/31/17 21:30 100 20 30 01/31/17 20:50 103 105/70 01/31/17 20:00 30 01/31/17 20:00 103 01/31/17 20:00 99.8 103 25 105/70 97 01/31/17 19:30 104 19 30 01/31/17 16:46 98 28 30 01/31/17 16:05 30 01/31/17 16:00 95 01/31/17 16:00 100.3 95 31 117/54 97 01/31/17 15:12 95 26 30 01/31/17 12:36 100 23 30 01/31/17 12:00 100.3 98 25 114/73 100 01/31/17 12:00 100 01/31/17 12:00 30 01/31/17 11:25 98 34 30 01/31/17 09:44 99.9 01/31/17 09:28 102 24 30 01/31/17 09:16 109 109/63 Height (Feet): 5 Height (Inches): 9.00 Weight (Pounds): 180 General Appearance: no acute distress HEENT: status post trach Respiratory/Chest: lungs clear, other - on ventilator Cardiovascular: tachycardia Abdomen: soft, non tender, other - GT feeding Extremities: no edema, other - contacted Neurologic/Psychiatric: aphasia Microbiology Date/Time Source Procedure Growth Status 01/29/17 12:15 Sputum Gram Stain - Final Resulted 01/29/17 12:15 Sputum Culture - Preliminary Pseudomonas Aeruginosa Stenotrophomonas Maltophilia Resulted 01/29/17 12:14 Urine,Clean Catch Urine Culture - Preliminary NO GROWTH AFTER 24 HOURS Resulted Current Medications Medications (Trade) Dose Ordered Sig/Mick Route PRN Reason Start Time Stop Time Status Last Admin Dose Admin Acetaminophen (Tylenol) 650 mg Q4H PRN NG Prn Headache/Temp > 101 01/26/17 18:15 02/25/17 18:14 01/31/17 09:14 Al Hydroxide/Mg Hydroxide (Mylanta) 30 ml QIDPRN PRN GT Abdominal cramps 01/26/17 18:15 02/25/17 18:14 Bisacodyl (Dulcolax) 10 mg DAILYPRN PRN RECTAL Constipation 01/26/17 18:00 02/25/17 17:59 Heparin Sodium (Porcine) (Heparin 5000 units/ml) 5,000 units EVERY 12 HOURS SUBQ 01/26/17 21:00 02/25/17 20:59 01/31/17 21:11 Lansoprazole (Prevacid) 30 mg DAILY GT 01/27/17 09:00 02/26/17 08:59 01/31/17 09:15 Levothyroxine Sodium (Synthroid) 75 mcg ACBREAKFAST GT 01/27/17 06:30 02/26/17 06:29 02/01/17 06:34 Magnesium Hydroxide (Mom) 30 ml DAILY GT 01/27/17 09:00 02/26/17 08:59 01/31/17 09:14 Meropenem 1 gm/ Sodium Chloride 55 ml @ 110 mls/hr Q8HR IVPB 01/30/17 12:00 02/04/17 11:59 02/01/17 06:35 Metoprolol Tartrate (Lopressor) 25 mg Q12HR GT 01/27/17 21:00 02/26/17 08:59 01/31/17 09:16 Metronidazole (Flagyl) 500 mg Q8HR ORAL 01/28/17 22:00 02/04/17 21:59 02/01/17 06:35 Vancomycin HCl (Vanco rx to dose) 1 ea DAILY PRN MISC Per rx protocol 01/26/17 18:15 02/25/17 18:14 Vancomycin HCl 1 gm/Dextrose 275 ml @ 183.708 mls/hr Q8HR@0400,1200,2000 IVPB 01/26/17 20:00 02/05/17 19:59 02/01/17 04:50 Zinc Sulfate (Zinc Sulfate) 250 mg DAILY GT 01/27/17 09:00 02/26/17 08:59 01/31/17 09:15 Zolpidem Tartrate (Ambien) 5 mg HSPRN PRN GT Insomnia 01/26/17 18:15 02/02/17 18:14 BETITO MACHADO Feb 01, 2017 08:11
[2017-02-01] MEDS: Levofloxacin 500mg tab GT SCH (09:46)
[2017-02-01] MEDS: Heparin 5000 units/ml inj SUBQ SCH ×2 (09:46→21:29)
[2017-02-01] MEDS: Metoprolol 25mg tab GT SCH ×2 (09:47→21:00)
[2017-02-01] MEDS: Milk of Magnesia 30ml Ud GT SCH (09:48)
[2017-02-01] MEDS: Cefepime HCl 2 GM in D5W 55 ML IVPB SCH ×2 (09:48→21:28)
[2017-02-01] MEDS: Zinc Sulfate 220mg cap GT SCH (09:50)
[2017-02-01 10:01] LABS: BASOPHILS % (AUTO) 0.6 % (0.0-2.0); EOSINOPHILS % (AUTO) 1.7 % (0.0-3.0); LYMPHOCYTES % (AUTO) 17.5 % (20.0-45.0); MEAN CORPUSCULAR HEMOGLOBIN 27.8 PG (27.0-31.0); MEAN CORPUSCULAR HGB CONC 31.7 G/DL (32.0-36.0); MEAN CORPUSCULAR VOLUME 88 FL (80-99); MEAN PLATELET VOLUME 6.1 FL (6.5-10.1); MONOCYTES % (AUTO) 3.9 % (1.0-10.0); NEUTROPHILS % (AUTO) 76.4 % (45.0-75.0); PLATELET COUNT 436 K/UL (150-450); RED BLOOD COUNT 4.05 M/UL (4.20-5.40); RED CELL DISTRIBUTION WIDTH 12.9 % (11.6-14.8); WHITE BLOOD COUNT 15.3 K/UL (4.8-10.8)
[2017-02-01 10:18] LABS: ANION GAP 9 mmol/L (5-15); CALCIUM 9.9 MG/DL (8.5-10.1); CARBON DIOXIDE 27 MMOL/L (21-32); CHLORIDE 104 MMOL/L (98-107); CREATININE 0.8 MG/DL (0.55-1.30); GLOMERULAR FILTRATION RATE > 60 mL/min (>60); POTASSIUM 4.4 MMOL/L (3.5-5.1); SODIUM 140 MMOL/L (136-145)
[2017-02-01 12:00] VITALS: BP 107/79
[2017-02-01 16:00] VITALS: BP 105/73
[2017-02-01 20:00] VITALS: BP 109/72
[2017-02-02] VITALS: BP 125/73
[2017-02-02 04:00] VITALS: BP 104/65
[2017-02-02 05:35] LABS: ANION GAP 7 mmol/L (5-15); CALCIUM 9.8 MG/DL (8.5-10.1); CARBON DIOXIDE 28 MMOL/L (21-32); CHLORIDE 104 MMOL/L (98-107); CREATININE 0.8 MG/DL (0.55-1.30); GLOMERULAR FILTRATION RATE > 60 mL/min (>60); SODIUM 139 MMOL/L (136-145)
[2017-02-02 05:45] LABS: BASOPHILS % (AUTO) 0.4 % (0.0-2.0); MEAN CORPUSCULAR HEMOGLOBIN 27.7 PG (27.0-31.0); MEAN CORPUSCULAR VOLUME 86 FL (80-99); MONOCYTES % (AUTO) 5.2 % (1.0-10.0); NEUTROPHILS % (AUTO) 75.5 % (45.0-75.0); PLATELET COUNT 433 K/UL (150-450); RED BLOOD COUNT 3.52 M/UL (4.20-5.40); RED CELL DISTRIBUTION WIDTH 12.9 % (11.6-14.8); WHITE BLOOD COUNT 11.6 K/UL (4.8-10.8)
[2017-02-02] MEDS: metroNIDAZOLE 500mg tab ORAL SCH (06:32)
[2017-02-02 08:00] VITALS: BP 119/75
--- NOTE | 2017-02-02 08:36 | General Progress Note ---
Assessment/Plan Assessment/Plan IMPRESSION sinus tachycardia possible sepsis respiratory failure trach CVA contractures hypothyroid PLAN supportive care SNF meds vent support dc planning today consider inhaled amikacin and levaquin on discharge impression, plan, and exam edited and reviewed in detail care discussed with RN Subjective Allergies: Coded Allergies: No Known Allergies (Unverified , 08/14/16) Subjective unable hemodynamics better Objective Last 24 Hour Vital Signs Date Time Temp Pulse Resp B/P (MAP) Pulse Ox O2 Delivery O2 Flow Rate FiO2 02/02/17 06:45 93 14 30 02/02/17 04:37 100 29 30 02/02/17 04:00 98 02/02/17 04:00 99.7 84 26 104/65 100 02/02/17 04:00 30 02/02/17 02:53 100 29 30 02/02/17 01:32 97 31 30 02/02/17 00:00 97 02/02/17 00:00 30 02/02/17 00:00 99.0 85 30 125/73 97 02/01/17 22:56 98 26 30 02/01/17 21:11 101 30 30 02/01/17 21:00 101 105/73 02/01/17 20:00 101 02/01/17 20:00 98.4 99 20 109/72 97 02/01/17 20:00 30 02/01/17 19:00 104 33 30 02/01/17 17:10 106 26 30 02/01/17 16:00 108 02/01/17 16:00 30 02/01/17 16:00 99.7 105 24 105/73 97 02/01/17 15:22 106 26 30 02/01/17 13:10 106 26 30 02/01/17 12:00 30 02/01/17 12:00 100 02/01/17 12:00 100.3 102 25 107/79 99 02/01/17 11:24 95 26 30 02/01/17 09:47 102 125/83 02/01/17 09:17 108 26 30 Laboratory Tests 02/01/17 09:00: White Blood Count 15.3H, Red Blood Count 4.05L, Hemoglobin 11.3L, Hematocrit 35.5#L, Mean Corpuscular Volume 88, Mean Corpuscular Hemoglobin 27.8, Mean Corpuscular Hemoglobin Concent 31.7L, Red Cell Distribution Width 12.9, Platelet Count 436, Mean Platelet Volume 6.1L, Neutrophils (%) (Auto) 76.4H, Lymphocytes (%) (Auto) 17.5L, Monocytes (%) (Auto) 3.9, Eosinophils (%) (Auto) 1.7, Basophils (%) (Auto) 0.6, Sodium Level 140, Potassium Level 4.4, Chloride Level 104, Carbon Dioxide Level 27, Anion Gap 9, Blood Urea Nitrogen 6L, Creatinine 0.8, Estimat Glomerular Filtration Rate > 60, Glucose Level 93, Calcium Level 9.9 02/02/17 03:30: White Blood Count 11.6H, Red Blood Count 3.52L, Hemoglobin 9.7L, Hematocrit 30.4L, Mean Corpuscular Volume 86, Mean Corpuscular Hemoglobin 27.7, Mean Corpuscular Hemoglobin Concent 32.0, Red Cell Distribution Width 12.9, Platelet Count 433, Mean Platelet Volume 6.0L, Neutrophils (%) (Auto) 75.5H, Lymphocytes (%) (Auto) 17.0L, Monocytes (%) (Auto) 5.2, Eosinophils (%) (Auto) 2.0, Basophils (%) (Auto) 0.4, Sodium Level 139, Potassium Level 4.0, Chloride Level 104, Carbon Dioxide Level 28, Anion Gap 7, Blood Urea Nitrogen 9, Creatinine 0.8 , Estimat Glomerular Filtration Rate > 60, Glucose Level 113H, Calcium Level 9.8 Height (Feet): 5 Height (Inches): 9.00 Weight (Pounds): 180 Objective WDWN NAD clear breath sounds bilaterally without rhonchi or wheeze [id number] without MRG NABS nontender no HSM; GT no CC contractures MONSERRAT GRULLON Feb 02, 2017 08:36
[2017-02-02] MEDS: Milk of Magnesia 30ml Ud GT SCH (09:00)
[2017-02-02] MEDS: Zinc Sulfate 220mg cap GT SCH (09:20)
[2017-02-02] MEDS: Levofloxacin 500mg tab GT SCH (09:20)
[2017-02-02] MEDS: Metoprolol 25mg tab GT SCH (09:21)
[2017-02-02] MEDS: Cefepime HCl 2 GM in D5W 55 ML IVPB SCH (09:21)
[2017-02-02] MEDS: Heparin 5000 units/ml inj SUBQ SCH (09:22)
[2017-02-02 12:00] VITALS: BP 109/63
--- NOTE | 2017-02-02 12:24 | Infectious Diseases Prog Note ---
"Assessment/Plan Assessment/Plan antibiotics : cefepime, levoquin, flagyl A 1. pseudomonas | stenotrophomonas pneumonia 2. fever improving 3. leucocytosis improving 4. respiratory failure 5. CVA P 1. continue cefepime, levoquin 8 more days 2. d/c flagyl 3. will follow up cultures Subjective ROS Limited/Unobtainable: Yes Allergies: Coded Allergies: No Known Allergies (Unverified , 08/14/16) Objective Vital Signs Last 24 Hour Vital Signs Date Time Temp Pulse Resp B/P (MAP) Pulse Ox O2 Delivery O2 Flow Rate FiO2 02/02/17 12:00 30 02/02/17 11:03 98 27 30 02/02/17 09:21 101 119/58 02/02/17 08:39 97 24 30 02/02/17 08:00 94 02/02/17 08:00 30 02/02/17 08:00 98.8 101 27 119/75 100 Mechanical Ventilator 30 02/02/17 06:45 93 14 30 02/02/17 04:37 100 29 30 02/02/17 04:00 98 02/02/17 04:00 99.7 84 26 104/65 100 02/02/17 04:00 30 02/02/17 02:53 100 29 30 02/02/17 01:32 97 31 30 02/02/17 00:00 97 02/02/17 00:00 30 02/02/17 00:00 99.0 85 30 125/73 97 02/01/17 22:56 98 26 30 02/01/17 21:11 101 30 30 02/01/17 21:00 101 105/73 02/01/17 20:00 101 02/01/17 20:00 98.4 99 20 109/72 97 02/01/17 20:00 30 02/01/17 19:00 104 33 30 02/01/17 17:10 106 26 30 02/01/17 16:00 108 02/01/17 16:00 30 02/01/17 16:00 99.7 105 24 105/73 97 02/01/17 15:22 106 26 30 02/01/17 13:10 106 26 30 Height (Feet): 5 Height (Inches): 9.00 Weight (Pounds): 180 HEENT: status post trach Respiratory/Chest: lungs clear Cardiovascular: normal rate, regular rhythm Abdomen: soft, non tender, other - GT Extremities: no edema Laboratory Tests Test 02/02/17 03:30 White Blood Count 11.6 K/UL (4.8-10.8) H Red Blood Count 3.52 M/UL (4.20-5.40) L Hemoglobin 9.7 G/DL (12.0-16.0) L Hematocrit 30.4 % (37.0-47.0) L Mean Corpuscular Volume 86 FL (80-99) Mean Corpuscular Hemoglobin 27.7 PG (27.0-31.0) Mean Corpuscular Hemoglobin Concent 32.0 G/DL (32.0-36.0) Red Cell Distribution Width 12.9 % (11.6-14.8) Platelet Count 433 K/UL (150-450) Mean Platelet Volume 6.0 FL (6.5-10.1) L Neutrophils (%) (Auto) 75.5 % (45.0-75.0) H Lymphocytes (%) (Auto) 17.0 % (20.0-45.0) L Monocytes (%) (Auto) 5.2 % (1.0-10.0) Eosinophils (%) (Auto) 2.0 % (0.0-3.0) Basophils (%) (Auto) 0.4 % (0.0-2.0) Sodium Level 139 MMOL/L (136-145) Potassium Level 4.0 MMOL/L (3.5-5.1) Chloride Level 104 MMOL/L (98-107) Carbon Dioxide Level 28 MMOL/L (21-32) Anion Gap 7 mmol/L (5-15) Blood Urea Nitrogen 9 mg/dL (7-18) Creatinine 0.8 MG/DL (0.55-1.30) Estimat Glomerular Filtration Rate > 60 mL/min (>60) Glucose Level 113 MG/DL (74-106) H Calcium Level 9.8 MG/DL (8.5-10.1) MICHAEL TAVARES Feb 02, 2017 12:24"
[2017-02-02 16:00] VITALS: BP 106/77
[2017-02-02] MEDS ORDERED: NS 500ML ONE (18:22)
[2017-02-02] MEDS ORDERED: Tubing IV Secondary IV ONE (18:22)
--- NOTE | 2017-02-06 13:01 | Discharge Summary ---
Discharge Summary Hospital Course Date of Admission Jan 26, 2017 at 11:14 Date of Discharge Feb 02, 2017 at 18:23 Admitting Diagnosis sepsis HPI Akiko Perez is a 46 year old female who was admitted on Jan 26, 2017 at 11: 14 for Sepsis Hospital Course dc summary #[id number] Discharge Condition Upon Discharge: stable Discharge Disposition Patient was discharged to SNF/Subacute Facility(03) Discharge Diagnoses: Discharge Instructions Discharge Instructions Special Instructions I have been assigned to complete a D/C Summary on this account. I was not involved in the patient management Yissel Mora NP ([place]) Feb 06, 2017 13:01
--- NOTE | 2017-02-06 22:02 | Discharge Summary 2 SIG ---
DATE OF ADMISSION: 01/26/2017 DATE OF DISCHARGE: 02/02/2017 REASON FOR ADMISSION: 46 years old female with past medical history significant for ventilator-dependent respiratory failure, tracheostomy, status post cardiac arrest in 2016, dysphagia, G-tube, history of CVA, seizure disorder, pacemaker, and hypothyroidism, presented to emergency department from the [facility] for evaluation. The patient by herself was nonverbal and unable to provide any information. The patient was sent for possible abdominal distention and fever. Initially in the emergency department, temperature- 99.3, then up to 101.1, the patient was tachycardic. EKG revealed sinus tachycardia, heart rate up to 120. Urinalysis with evidence of possible urinary tract infection. KUB was negative for any acute findings. Chest x-ray revealed no acute cardiopulmonary pathology. Elevated lactic acid -3.8. Electrolytes were stable. Troponin was negative. Pro BNP- 111. The patient was admitted with possible sepsis, possible urinary tract infection, and fever. HOSPITAL COURSE: The patient was admitted to [facility]. Ventilator support was provided. Pulmonary toilet and tracheostomy care were provided. Baseline ABG was stable on current settings. Infectious Disease consult was requested due to the leukocytosis initially noted. On 01/28/2017, leukocytosis noted-14.3. Leukocytosis was trended up, the highest -17.5, prior to discharge -11.6. Fever improved. Urine culture negative. Blood culture negative. Sputum culture revealed Pseudomonas and Stenotrophomonas. Infectious Disease specialist directed intravenous antibiotic regimen and optimized treatment, advised to continue IV antibiotics at the [facility] to complete the full course. Fever resolved. Follow up chest x-ray on 01/31/2017 revealed interstitial edema, possible hazy infiltrates, likely bilateral left greater than right pleural effusion. Potassium replaced. Hemoglobin and hematocrit remained on the baseline. No need for transfusion. SNF medications were resumed. Levothyroxine was continued. Wound care was provided as per wound care nurse recommendation. The patient had a sacral stage III decubitus ulcer present on admission. Leukocytosis trending down. No fever. Electrolytes were replaced as needed. The patient was clinically improving. The patient was stable for discharge back to subacute facility to complete antibiotic course. FINAL DIAGNOSES: 1. Possible sepsis 2. Pneumonia with Pseudomonas and Stenotrophomonas. 3. Leukocytosis, trending down. 4. Respiratory failure, ventilator dependent. 5. Tracheostomy status. 6. History of cerebrovascular accident. 7. Contractures. 8. Hypothyroidism. 9. Sacral pressure ulcer stage III, present on admission. DISCHARGE INSTRUCTIONS: The patient was discharged to subacute residential facility. FOLLOWUP: Follow up with medical doctor and financial services professional at the facility. DISCHARGE MEDICATIONS: List of medication was sent to admitting facility. Jasiel Johnson M.D. I have been assigned to dictate discharge summary on this account and I was not involved in the patient's management. Yissel [facility]: [facility] CampusMike N.PDerrick DR: FABBY JOB#: [id number] CC: SAAD
== END 2017-02-02 18:23 | DRG 720 ==
LOC: EDUNIT# 10:32 → EDBD 10:32 → EMR 10:50 → 2W 11:14 → ENRESERV 11:45 → EDBEDREQ 11:59 → 2W 16:44
PROC: 5A1955Z Respiratory Ventilation, Greater than 96 Consecutive Hours (ICD-10-PCS; principal; 2017-01-26)
DX: A41.9 Sepsis, unspecified organism (principal); J96.90 Respiratory failure, unspecified, unspecified whether with hypoxia or hypercapnia; Z99.11 Dependence on respirator [ventilator] status; Z93.0 Tracheostomy status; J15.1 Pneumonia due to Pseudomonas; L89.153 Pressure ulcer of sacral region, stage 3; R13.10 Dysphagia, unspecified; Z93.1 Gastrostomy status; Z86.73 Personal history of transient ischemic attack (TIA), and cerebral infarction without residual deficits; M24.50 Contracture, unspecified joint; Z95.0 Presence of cardiac pacemaker; E03.9 Hypothyroidism, unspecified
CPT/HCPCS: 36415; 36600; 71010; 74000; 80048; 80053; 80202; 81003; 82550; 82553; 82803; 83605; 83690; 83735; 83880; 84100; 84484; 85007; 85025; 87040; 87070; 87086; 87181; 87205; 93005; 94002; 94003; 94664; 99285